=== PATIENT | female | born 1965 | race Caucasian/White ===

== ENCOUNTER 2018-08-15 06:35 | Emergency (ER) | payer MEDICAID ==
[2018-08-15 07:16] LABS: BASOPHILS # (AUTO) 0.1 10^3/uL (0.0-0.1); BASOPHILS % (AUTO) 0.5 %; HGB - HEMOGLOBIN 16.3 g/dL (12.0-16.0); LYMPHOCYTES # (AUTO) 2.2 10^3/uL (1.5-3.5); LYMPHOCYTES % (AUTO) 15.6 %; MEAN CORPUSCULAR HEMOGLOBIN 31.6 pg (27.0-31.0); MEAN CORPUSCULAR HGB CONC 32.3 g/dL (32.0-36.0); MEAN CORPUSCULAR VOLUME 97.8 fL (81.0-99.0); MEAN PLATELET VOLUME 10.9 fL (7.9-10.8); MONOCYTES # (AUTO) 1.4 10^3/uL (0.0-1.0); MONOCYTES % (AUTO) 10.2 %; NEUTROPHILS # (AUTO) 10.3 10^3/uL (1.5-6.6); NEUTROPHILS % (AUTO) 73.7 %; PLT - PLATELET COUNT 297 10^3/uL (130-450); RED BLOOD COUNT 5.15 10^6/uL (4.20-5.40); RED CELL DISTRIBUTION WIDTH 13.9 % (12.0-15.0)
--- NOTE | 2018-08-15 07:19 | ED Physician Documentation ---
PD HPI NVD - Stated complaint Stated Complaint: VOMITING - Chief complaint Chief Complaint: Abd Pain - History obtained from History obtained from: Patient - History of Present Illness Timing - onset: How many days ago (4) Timing - duration: Days (4) Timing - details: Gradual onset, Still present Associated symptoms: Abdominal pain, Near syncope / syncope, Loss of appetite Improved by: Vomiting Worsened by: Eating Similar symptoms before: Diagnosis (pancreatitis and UTI requiring hospitalization) Recently seen: Not recently seen - Additonal information Additional information: Previously well 53-year-old female with a history of pancreatitis is developed acute nausea vomiting and abdominal pain about 4 days ago. She is not been able to hold down much in the way of fluids and she is here now for evaluation. She reports that the past 2 years in a row she has been hospitalized at [facility] for up to 2 weeks 2 years ago for pancreatitis and last year for urinary tract infection. Review of Systems Constitutional: reports: Chills, Myalgias, Fatigue, Sweats Eyes: denies: Decreased vision Ears: denies: Ear pain Nose: denies: Rhinorrhea / runny nose, Congestion Throat: denies: Sore throat Cardiac: denies: Chest pain / pressure, Palpitations, Pedal edema, Calf pain Respiratory: reports: Cough. denies: Dyspnea GI: reports: Abdominal Pain, Nausea, Vomiting. denies: Constipation, Diarrhea : denies: Dysuria, Frequency Skin: denies: Rash Musculoskeletal: denies: Neck pain, Back pain, Extremity pain Neurologic: reports: Generalized weakness. denies: Focal weakness, Numbness PD PAST MEDICAL HISTORY - Past Medical History Past Medical History: Yes GI: Pancreatitis Psych: Schizophrenia, Panic attacks - Past Surgical History Past Surgical History: Yes General: Cholecystectomy - Present Medications Home Medications: Ambulatory Orders Medication Instructions Recorded Confirmed Promethazine [Phenergan] 25 mg PO Q6H PRN #10 tab 08/15/18 risperiDONE [Risperidone] 10 mg PO DAILY 08/15/18 08/15/18 - Allergies Allergies/Adverse Reactions: Allergies Allergy/AdvReac Type Severity Reaction Status Date / Time cephalexin Allergy Hallucinati Verified 08/15/18 06:50 ons - Social History Does the pt smoke?: Yes Smoking Status: Current every day smoker Does the pt drink ETOH?: No Does the pt have substance abuse?: Yes Substance Use and Type: Marijuana - Immunizations Immunizations are current?: Yes - POLST Patient has POLST: No PD ED PE NORMAL - Vitals Vital signs reviewed: Yes (hypertensive ) - General General: Alert and oriented X 3, Well developed/nourished, Other (carrier associate tone and flat affect belie the appearance of pain ) - HEENT HEENT: Atraumatic, PERRL, EOMI, Other (dry mucous membranes ) - Neck Neck: Supple, no meningeal sign - Cardiac Cardiac: RRR, No murmur - Respiratory Respiratory: No respiratory distress, Clear bilaterally - Abdomen Abdomen: Soft, Other (general tenderness without garding or rebound. 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, No motor deficit, No sensory deficit, Normal speech Eye Opening: Spontaneous Motor: Obeys Commands Verbal: Oriented GCS Score: 15 - Psych Psych: Normal mood Results - Vitals Vitals: Vital Signs - 24 hr 08/15/18 08/15/18 06:35 09:04 Temperature 36.5 C Heart Rate 53 L 65 Respiratory 18 15 Rate Blood Pressure 164/100 H 164/85 H O2 Saturation 97 97 Oxygen O2 Source Room air - Labs Labs: Laboratory Tests 08/15/18 08/15/18 08/15/18 06:55 06:55 07:15 WBC 14.0 H RBC 5.15 Hgb 16.3 H Hct 50.4 H MCV 97.8 MCH 31.6 H MCHC 32.3 RDW 13.9 Plt Count 297 MPV 10.9 H Neut # (Auto) 10.3 H Lymph # (Auto) 2.2 [place] # (Auto) 1.4 H Eos # (Auto) 0.0 Baso # (Auto) 0.1 Absolute Nucleated RBC 0.00 Nucleated RBC % 0.0 Sodium 142 Potassium 3.0 L Chloride 99 L Carbon Dioxide 28 Anion Gap 15.0 H BUN 21 H Creatinine 1.1 H Estimated GFR (MDRD) 52 L Glucose 173 H Calcium 9.9 Total Bilirubin 0.9 AST 26 ALT 20 Alkaline Phosphatase 96 Total Protein 9.0 H Albumin 5.2 Globulin 3.8 Albumin/Globulin Ratio 1.4 Amylase 176 H Lipase 88 H Urine Color DARK YELLOW Urine Clarity CLEAR Urine pH 6.0 Ur Specific [place] >=1.030 H Urine Protein 100 H Urine Glucose (UA) NEGATIVE Urine Ketones 40 H Urine Occult Blood MODERATE H Urine Nitrite NEGATIVE Urine Bilirubin NEGATIVE Urine Urobilinogen 0.2 (NORMAL) Ur Leukocyte Esterase NEGATIVE Urine RBC 6-10 H Urine WBC 0-3 Ur Squamous Epith Cells MOD Squamous H Urine Bacteria Few Ur Microscopic Review INDICATED Urine Culture Comments NOT INDICATED Procedures - IVC sono (time) 0730 Bedside IVC sono: IVC measures (cm) (1.22), IVC collapsed c insp (cm) (complete), Dehydration (est 1 liter deficit) PD MEDICAL DECISION MAKING - ED course Complexity details: reviewed old records, reviewed results, re-evaluated patient, considered differential, d/w patient, d/w family ED course: 53 y/o female with acute vomiting and abdominal pain has mild elevation in the amylase and lipase consistent with a mild pancreatitis. She responds to treatment here with saline, phenergan and potassium. Departure - Departure Disposition: 01 Home, Self Care Clinical Impression: Dehydration Pancreatitis Qualifiers: Chronicity: acute Pancreatitis type: unspecified pancreatitis type Acute pancreatitis complication: unspecified Qualified Code(s): K85.90 - Acute pancreatitis without necrosis or infection, unspecified Condition: Stable Instructions: ED Dehydration, ED Pancreatitis Follow-Up: Lay Westfall DNP [Primary Care Provider] - Prescriptions: Promethazine [Phenergan] 25 mg PO Q6H PRN #10 tab PRN Reason: Nausea / Vomiting
[2018-08-15 07:22] LABS: GLUCOSE, URINE (UA) NEGATIVE (NEGATIVE); KETONES,URINE (UA) 40 mg/dL (NEGATIVE); LEUKOCYTE ESTERASE, URINE NEGATIVE (NEGATIVE); NITRITE,URINE NEGATIVE (NEGATIVE); OCCULT BLOOD,URINE MODERATE (NEGATIVE); PROTEIN,URINE 100 mg/dL (NEGATIVE); UROBILINOGEN,URINE 0.2 (NORMAL) E.U./dL (NORMAL)
[2018-08-15 07:23] LABS: ALBUMIN 5.2 g/dL (3.2-5.5); ALBUMIN/GLOBULIN RATIO 1.4 (1.0-2.2); BILIRUBIN,TOTAL 0.9 mg/dL (0.2-1.0); CALCIUM 9.9 mg/dL (8.5-10.3); CREATININE 1.1 mg/dL (0.4-1.0)
[2018-08-15 07:26] LABS: BILIRUBIN,URINE NEGATIVE (NEGATIVE); CLARITY,URINE CLEAR (CLEAR); ICTOTEST,URINE NEGATIVE
[2018-08-15 07:39] LABS: BACTERIA,URINE Few /HPF (None Seen); SQUAMOUS EPITHELIAL CELL,UR MOD Squamous (<= Few)
[2018-08-15] MEDS: SODIUM CHLORIDE 0.9% 1,000 ML IV ONE (07:48)
[2018-08-15] MEDS: PROMETHAZINE INJ 25 MG in SODIUM CHLORIDE 0.9% 50 ML IV STA (07:48)
[2018-08-15] MEDS: POTASSIUM CHLOR 10 MEQ/100 ML 10 MEQ/100 ML BAG IV ONE (08:24)
[2018-08-15] MEDS: POTASSIUM BICARB 25 MEQ TABLET PO STA (08:24)
[2018-08-15 09:04] VITALS: BP 164/85
== END 2018-08-15 10:13 | disposition home or self-care (01) ==
LOC: ED 06:35
DX: E86.0 Dehydration (principal); K85.90 Acute pancreatitis without necrosis or infection, unspecified; F17.200 Nicotine dependence, unspecified, uncomplicated
CPT/HCPCS: 36415; 80053; 81001; 81003; 82150; 83690; 85025; 87086; 96365; 96366; 96367; 99283; 99284

== ENCOUNTER 2018-08-18 23:25 | Inpatient (IN) | payer MEDICAID ==
[2018-08-18] MEDS ORDERED: SODIUM CHLORIDE 0.9% 1,000 ML IV STA (23:31)
[2018-08-18] MEDS ORDERED: HALOPERIDOL 5 MG/ML VIAL IVP STA (23:53)
--- NOTE | 2018-08-18 23:58 | ED Physician Documentation ---
History of Present Illness - Stated complaint Stated Complaint: VOMITING - Chief complaint Chief Complaint: Abd Pain - History obtained from History obtained from: Patient, Family - History of Present Illness Timing: How many days ago (5) Pain level max: 3 Pain level now: 3 Improved by: nothing Worsened by: eating - Additonal information Additional information: Patient is a 53-year-old female who uses marijuana 3-4 times daily, states she has been vomiting for the past 5 days. Seen here 3 days ago for same, given IV fluids and Phenergan. Decided to go home at that time but the vomiting has continued. No fevers. Mild abdominal cramping. This is happened several times in the past. Usually has to be hospitalized. Review of Systems Ten Systems: 10 systems reviewed and negative Constitutional: denies: Fever, Chills Nose: denies: Rhinorrhea / runny nose, Congestion Throat: denies: Sore throat Cardiac: denies: Chest pain / pressure Respiratory: denies: Cough GI: reports: Nausea, Vomiting. denies: Diarrhea Skin: denies: Rash Musculoskeletal: denies: Neck pain, Back pain Neurologic: denies: Focal weakness, Numbness, Headache PD PAST MEDICAL HISTORY - Past Medical History Past Medical History: Yes Cardiovascular: None Respiratory: None Neuro: None Endocrine/Autoimmune: None GI: Pancreatitis CARE ASSOCIATE: None : None HEENT: None Psych: Schizophrenia, Panic attacks Musculoskeletal: None Derm: None - Past Surgical History Past Surgical History: Yes General: Cholecystectomy - Present Medications Home Medications: Ambulatory Orders Medication Instructions Recorded Confirmed Promethazine [Phenergan] 25 mg PO Q6H PRN #10 tab 08/15/18 risperiDONE [Risperidone] 10 mg PO DAILY 08/15/18 08/15/18 - Allergies Allergies/Adverse Reactions: Allergies Allergy/AdvReac Type Severity Reaction Status Date / Time cephalexin Allergy Hallucinati Verified 08/18/18 23:34 ons - Social History Does the pt smoke?: Yes Smoking Status: Current every day smoker Does the pt drink ETOH?: No Does the pt have substance abuse?: Yes - Immunizations Immunizations are current?: Yes - POLST Patient has POLST: No PD ED PE NORMAL - Vitals Vital signs reviewed: Yes - General General: Alert and oriented X 3, No acute distress - HEENT HEENT: Moist mucous membranes - Neck Neck: Supple, no meningeal sign - Cardiac Cardiac: RRR - Respiratory Respiratory: No respiratory distress, Clear bilaterally - Abdomen Abdomen: Soft, Non tender, Non distended - Derm Derm: Warm and dry - Extremities Extremities: No edema - Neuro Neuro: Alert and oriented X 3 - Psych Psych: Normal mood, Normal affect Results - Vitals Vitals: Vital Signs - 24 hr 08/18/18 08/19/18 08/19/18 23:32 00:06 00:44 Temperature 37.3 C Heart Rate 98 70 82 Respiratory 16 16 16 Rate Blood Pressure 127/96 H 116/78 113/65 O2 Saturation 98 98 97 08/19/18 08/19/18 01:04 01:31 Temperature Heart Rate 76 79 Respiratory 16 16 Rate Blood Pressure 130/78 109/88 H O2 Saturation 96 94 Oxygen O2 Source Room air - Labs Labs: Laboratory Tests 08/18/18 08/18/18 23:40 23:40 WBC 11.4 H RBC 5.69 H Hgb 17.9 H Hct 54.4 H MCV 95.5 MCH 31.5 H MCHC 33.0 RDW 13.9 Plt Count 278 MPV 11.2 H Neut # (Auto) 8.5 H Lymph # (Auto) 1.7 [place] # (Auto) 1.2 H Eos # (Auto) 0.0 Baso # (Auto) 0.1 Absolute Nucleated RBC 0.00 Nucleated RBC % 0.0 Sodium 136 Potassium 2.5 L* Chloride 93 L Carbon Dioxide 31 Anion Gap 12.0 BUN 27 H Creatinine 1.0 Estimated GFR (MDRD) 58 L Glucose 129 H Calcium 8.5 Phosphorus 2.6 Magnesium 2.3 Total Bilirubin 2.1 H AST 107 H ALT 253 H Alkaline Phosphatase 123 H Total Protein 7.3 Albumin 4.0 Globulin 3.3 Albumin/Globulin Ratio 1.2 Lipase 44 - Rads (name of study) CT abd/pelvis Radiology: Prelim report reviewed, EMP read contemporaneously, See rad report (Abnormal wall thickening of the distal and terminal ileum, suggestive of inflammatory bowel disease. No evidence of bowel obstruction or perforation. Normal appendix. ) PD MEDICAL DECISION MAKING - ED course Complexity details: reviewed results, re-evaluated patient, considered differential, d/w patient, d/w family, d/w [facility] consultant ED course: Patient is a 53-year-old female who presents to the emergency department with continued vomiting today. Possible cannabinoid-induced hyperemesis? Given Haldol and does feel better but did have continued vomiting. Then given Phenergan and Zofran and vomited as well. Given IV fluids. Found to be significantly hypokalemic. As she is not tolerating p.o., was given as K riders. CT scan does show small bowel wall thickening, possible inflammatory bowel disease? Patient states she does not have a history of this. Will place in observation for continued vomiting and hypokalemia. Discussed the case with Dr. Reyna, hospitalist who accepts This document was made in part using voice recognition software. While efforts are made to proofread this document, sound alike and grammatical errors may occur. Patient has never had a colonoscopy or seen GI. Departure - Departure Disposition: ED Place in Observation Clinical Impression: Dehydration, Hypokalemia, Cannabinoid hyperemesis syndrome Vomiting Qualifiers: Vomiting type: unspecified Vomiting Intractability: intractable Nausea presence: with nausea Qualified Code(s): R11.2 - Nausea with vomiting, unspecified Condition: Stable
[2018-08-19 00:17] LABS: BASOPHILS # (AUTO) 0.1 10^3/uL (0.0-0.1); BASOPHILS % (AUTO) 0.6 %; EOSINOPHILS % (AUTO) 0.3 %; HGB - HEMOGLOBIN 17.9 g/dL (12.0-16.0); LYMPHOCYTES # (AUTO) 1.7 10^3/uL (1.5-3.5); LYMPHOCYTES % (AUTO) 14.8 %; MEAN CORPUSCULAR HEMOGLOBIN 31.5 pg (27.0-31.0); MEAN CORPUSCULAR VOLUME 95.5 fL (81.0-99.0); MEAN PLATELET VOLUME 11.2 fL (7.9-10.8); MONOCYTES # (AUTO) 1.2 10^3/uL (0.0-1.0); MONOCYTES % (AUTO) 10.2 %; NEUTROPHILS # (AUTO) 8.5 10^3/uL (1.5-6.6); NEUTROPHILS % (AUTO) 74.1 %; PLT - PLATELET COUNT 278 10^3/uL (130-450); RED BLOOD COUNT 5.69 10^6/uL (4.20-5.40); RED CELL DISTRIBUTION WIDTH 13.9 % (12.0-15.0); WHITE BLOOD COUNT 11.4 x10^3/uL (4.8-10.8)
[2018-08-19 00:40] LABS: ALBUMIN/GLOBULIN RATIO 1.2 (1.0-2.2); BILIRUBIN,TOTAL 2.1 mg/dL (0.2-1.0); CALCIUM 8.5 mg/dL (8.5-10.3); MAGNESIUM 2.3 mg/dL (1.7-2.8); PHOSPHORUS 2.6 mg/dL (2.5-4.6); TOTAL PROTEIN 7.3 g/dL (6.7-8.2)
[2018-08-19] MEDS ORDERED: SODIUM CHLORIDE 0.9% 1,000 ML IV ONE (00:48)
[2018-08-19] MEDS ORDERED: ONDANSETRON 4 MG/2 ML VIAL IVP STA (00:49)
[2018-08-19] MEDS ORDERED: PROMETHAZINE INJ 25 MG in SODIUM CHLORIDE 0.9% 50 ML IV STA (00:49)
[2018-08-19] MEDS ORDERED: POTASSIUM CHLOR 10 MEQ/100 ML 10 MEQ/100 ML BAG IV ONE ×2 (00:49)
[2018-08-19] MEDS ORDERED: IOPAMIDOL-300 100 ML VIAL ONE (00:58)
[2018-08-19] MEDS ORDERED: IOPAMIDOL-300 100 ML VIAL IVP ONE (01:17)
[2018-08-19] MEDS ORDERED: ONDANSETRON ODT 4 MG TABLET TL PRN (01:39)
[2018-08-19] MEDS ORDERED: PROCHLORPERAZINE 10 MG/2 ML VIAL IVP PRN (01:39)
[2018-08-19] MEDS ORDERED: ONDANSETRON 4 MG/2 ML VIAL IVP PRN (01:39)
--- NOTE | 2018-08-19 01:43 | CT Report ---
Reason: vomiting, abd pain Procedure Date: 08/19/2018 Accession Number: [id number] / [id number] Procedure: CT - Abdomen/Pelvis W/ CPT Code: FULL RESULT: EXAM: CT ABDOMEN AND PELVIS EXAM DATE: 08/19/2018 01:27 AM. CLINICAL HISTORY: Vomiting, abd pain. COMPARISONS: None. TECHNIQUE: Routine helical CT imaging was performed through the abdomen and pelvis. IV contrast: ISOVUE 300 100mL. Enteric contrast: No. Reconstructions: Coronal and sagittal. In accordance with CT protocol optimization, one or more of the following dose reduction techniques were utilized for this exam: automated exposure control, adjustment of mA and/or KV based on patient size, or use of iterative reconstructive technique. FINDINGS: Lung Bases: Unremarkable. Liver: Normal. No masses. Gallbladder/Bile Ducts: Postoperative changes of cholecystectomy. No biliary dilatation. Spleen: Normal. Pancreas: Normal. Adrenal Glands: Normal. Kidneys: Normal. No masses or hydronephrosis. Peritoneal Cavity/Bowel: There is abnormal wall thickening of the distal and terminal ileum, suggestive of inflammatory bowel disease. No proximal small bowel dilatation is seen. Colonic diverticulosis is present, without CT evidence of diverticulitis. No free gas, free fluid, or abdominal adenopathy is appreciated. The appendix is well visualized and normal. Pelvic Organs: An IUD is noted in the uterus. No pelvic adenopathy or free fluid. Vasculature: No aneurysms or other significant abnormality. Bones: No significant abnormality. Other: None. IMPRESSION: Abnormal wall thickening of the distal and terminal ileum, suggestive of inflammatory bowel disease. No evidence of bowel obstruction or perforation. Normal appendix. RADIA
--- NOTE | 2018-08-19 01:49 | HISTORY & PHYSICAL EXAMINATION ---
Chief Complaint - Chief Complaint Chief Complaint: intractable nausea and vomitting History of Present Illness - Admitted From Admitted From:: ER/Home - History Obtained From Records Reviewed: [facility] History obtained from: patient and Dr. Baxter Exam Limitations: none - History of Present Illness HPI Comment/Other: she states she has had multiple encounters for N/V [facility] and ourselves with an admission for pancreatitis a few years ago. She has also had her gallbladder removed. Her states she had her last admission about 2 years ago and she was there close to 2 weeks as they worked her up. This time it's been with abd cramping, but no diarrhea, no fever, no chills. Emesis is without blood. She is not abusing alcohol. She does use cannibus 3-4 times a day to control her shoulder pain. . She was seen in the ER and felt better so went home after treatment. But N/V returned and this time not responding to IVF, phenergan, zofran, haldol in the ER, Labs show new hypokalemia and new hepatit is. In between episodes of the nausea and vomitting she is with normal appetite and no diarrhea, no pain. 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 ) Derm: reports: None MRSA Hx?: No - Past Surgical History General: reports: Cholecystectomy - Family & Social History Family History Comment/Other: Mom is alive at 72 and has survived breast cancer and "is stupid" according to the patient. Dad at 49 bc of. 1 sibling after being hit by a car, other siblings are healthy Living arrangement: At home Living Situation: With spouse/s.o. Social History Notes: She is from the [place]. to her second . They live in their own home and she works with him sometimes. He is a aldana. She occasionally drinks alcohol but no hx of abuse. Denies tobacco use. Uses cannibus 3-4 times a day. No hx of cocaine, heroin, metamphetamines. - Substance History Use: Uses substance without health or social issues: Alcohol Abuse: Recurrent use of substance despite neg consequences: NONE Dependence: Experiences withdrawal or developed tolerances: NONE - POLST Patient has POLST: No POLST Status: Full Code Meds/Allgy - Home Medications Home Medications: Ambulatory Orders Medication Instructions Recorded Confirmed Promethazine [Phenergan] 25 mg PO Q6H PRN #10 tab 08/15/18 risperiDONE [Risperidone] 10 mg PO DAILY 08/15/18 08/15/18 - Allergies Allergies/Adverse Reactions: Allergies Allergy/AdvReac Type Severity Reaction Status Date / Time cephalexin Allergy Hallucinati Verified 08/18/18 23:34 ons Review of Systems - Constitutional Constitutional: reports: Poor appetite (for the last week.). denies: Fatigue, Fever, Chills, Malaise, Weight gain, Weight loss - Eyes Eyes: denies: Irritation, Amaurosis, Field loss, Vision loss - Ears, Nose & Throat Ears, Nose & Throat: reports: Vertigo (when she drinks. Last time was 04/04 and she almost fell on the ground after 2 drinks.). denies: Hearing loss, Nasal congestion, Postnasal drainage, Dentures, Sore throat, Hoarseness - Cardiovascular Cariovascular: denies: Irregular heart rate, Palpitations, Chest pain, Edema, Syncope, Exertional dyspnea, Decr. exercise tolerance - Respiratory Respiratory: denies: Cough, Sputum production, Wheezing, Snoring - Gastrointestinal Gastrointestinal: reports: Abdominal distention, Other (rectal pain from a ?fissure but she doesn't want to talk about it). denies: Abdominal pain, Constipation, Diarrhea, Change in bowel habits - Genitourinary Genitourinary: denies: Dysuria, Frequency, Urgency, Incontinence, Flank pain, Nocturia - Musculoskeletal Musculoskeletal: reports: Joint pain (in shoulder. knees and hips are ok). denies: Muscle pain, Back pain, Muscle aches, Stiffness - Integumentary Integumentary: denies: Lesions, Dryness, Pigment changes - Neurological Neurological: denies: General weakness, Focal weakness, Headache, Dizziness, Memory problems, Pre-existing deficit - Psychiatric Psychiatric: reports: Anxiety, Hallucinations - Endocrine Endocrine: denies: Polyuria, Polydypsia, Polyphagia - Hematologic/Lymphatic Hematologic/Lymphatic: denies: Anemia, Bruising, Petechiae, Blood clots Prior Level of Functionality: Independent with ADL's. Drives. 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 Exam - Vital Signs Reviewed Vital Signs: Yes Vital Signs: Vital Signs x48h Temp Pulse Resp BP Pulse Ox 08/19/18 01:31 79 16 109/88 H 94 08/19/18 01:04 76 16 130/78 96 08/19/18 00:44 82 16 113/65 97 08/19/18 00:06 70 16 116/78 98 08/18/18 23:32 37.3 C 98 16 127/96 H 98 - Physical Exam General Appearance: positive: No acute distress, Alert, Other (short statured slender white female quietly laying in bed. Has had several episodes of wretching and dry heaves while in the ER.) Eyes Bilateral: positive: PERRL, EOMI ENT: positive: Pharynx nml Neck: positive: No JVD. negative: Stiff neck, Carotid bruit Respiratory: positive: Chest non-tender. negative: Wheezes, Rales, Rhonchi Cardiovascular: positive: Regular rate & rhythm. negative: Systolic murmur, Gallop/S4, Friction rub Peripheral Pulses: positive: 1+ Abdomen: positive: No organomegaly, Nml bowel sounds, No distention, Tenderness (mild and diffuse). negative: Guarding, Rebound Skin: positive: Warm, Dry Extremities: positive: Full ROM, No pedal edema Neurologic/Psychiatric: positive: Oriented x3, CN's nml (2-12), Motor nml. negative: Mood/affect nml (she seems angry. Not happy shared her symptoms of fissure, not happy at mom when she called her stupid.) Conclusion/Plan - Problem List (1) Intractable vomiting with nausea Conclusion/Plan: She has had several episodes in the past and carries the diagnosis of pancreatitis (w subsequent lap lauren), canabinoid hyperemesis syndrome, and now she has an abnormal CT. She has never had a colonoscopy. The CT shows inflamed small bowel and combine that w rectal "fissure" she may have inflammatory bowel disease. But she denies bloody diarrhea, blood in stool, abd pain, weight changes. No fever or sweats. Plan: admit OBV for control of symptoms continue IVF continue phenergan, compazine and zofran prn Protonix IV bid If she responds and can leave tomorrow , plan on keeping her appointment w Chris Rowell, her PA. She will need a referral to GI for colonoscopy and biopsy to eval for IBD. (2) Dehydration Conclusion/Plan: as seen with dry mucous membranes and elevated Hgb and Hct. Plan: IVF (3) Hypokalemia Conclusion/Plan: K riders recheck BMP in am. (4) Elevated LFTs Conclusion/Plan: not present with visit a few days ago. CT of abd with unremarkable liver, ducts. Hepatitis vs. CBD stone Check hepatitis panel If continues to have elevated alk vickie or bili, may need outpt MRCP. They are not availab le on the weekends. - Lab Results Fish Bones: 08/18/18 23:40 08/18/18 23:40 - Diagnostic Imaging Results Diagnostic Imaging Results: positive: Final report reviewed Diagnostic Imaging Results Comments: CT ABDOMEN AND PELVIS EXAM DATE: 08/19/2018 01:27 AM. CLINICAL HISTORY: Vomiting, abd pain. COMPARISONS: None. TECHNIQUE: Routine helical CT imaging was performed through the abdomen and pelvis. IV contrast: ISOVUE 300 100mL. Enteric contrast: No. Reconstructions: Coronal and sagittal. In accordance with CT protocol optimization, one or more of the following dose reduction techniques were utilized for this exam: automated exposure control, adjustment of mA and/or KV based on patient size, or use of iterative reconstructive technique. FINDINGS: Lung Bases: Unremarkable. Liver: Normal. No masses. Gallbladder/Bile Ducts: Postoperative changes of cholecystectomy. No biliary dilatation. Spleen: Normal. Pancreas: Normal. Adrenal Glands: Normal. Kidneys: Normal. No masses or hydronephrosis. Peritoneal Cavity/Bowel: There is abnormal wall thickening of the distal and terminal ileum, suggestive of inflammatory bowel disease. No proximal small bowel dilatation is seen. Colonic diverticulosis is present, without CT evidence of diverticulitis. No free gas, free fluid, or abdominal adenopathy is appreciated. The appendix is well visualized and normal. Pelvic Organs: An IUD is noted in the uterus. No pelvic adenopathy or free fluid. Vasculature: No aneurysms or other significant abnormality. Bones: No significant abnormality. Other: None. IMPRESSION: Abnormal wall thickening of the distal and terminal ileum, suggestive of inflammatory bowel disease. No evidence of bowel obstruction or perforation. Normal appendix. Core Measures - Anticipated LOS I expect patient to be DC'd or transferred within 96 hours.: Yes - DVT/VTE - Prophylaxis VTE/DVT Device ordered at admit?: Yes
[2018-08-19] MEDS: SODIUM CHLORIDE 0.9% 1,000 ML IV SCH ×4 (02:42→21:46)
[2018-08-19 02:47] LABS: GLUCOSE, URINE (UA) NEGATIVE (NEGATIVE); KETONES,URINE (UA) 15 mg/dL (NEGATIVE); LEUKOCYTE ESTERASE, URINE NEGATIVE (NEGATIVE); NITRITE,URINE NEGATIVE (NEGATIVE); OCCULT BLOOD,URINE TRACE-LYSE (NEGATIVE); PROTEIN,URINE NEGATIVE (NEGATIVE); UROBILINOGEN,URINE 0.2 (NORMAL) E.U./dL (NORMAL)
[2018-08-19 02:55] LABS: BILIRUBIN,URINE NEGATIVE (NEGATIVE); CLARITY,URINE CLEAR (CLEAR); ICTOTEST,URINE NEGATIVE
[2018-08-19] MEDS ORDERED: HALOPERIDOL 5 MG/ML VIAL IVP SCH (04:00)
[2018-08-19] MEDS: SODIUM CHLORIDE FLUSH 0.9% 10 ML SYRINGE IVP PRN ×3 (04:09→07:21)
[2018-08-19] MEDS: PANTOPRAZOLE 40 MG VIAL IVP SCH ×2 (07:20→16:25)
[2018-08-19 07:29] LABS: BASOPHILS % (AUTO) 0.3 %; EOSINOPHILS # (AUTO) 0.1 10^3/uL (0.0-0.7); EOSINOPHILS % (AUTO) 1.1 %; HGB - HEMOGLOBIN 14.7 g/dL (12.0-16.0); LYMPHOCYTES # (AUTO) 2.6 10^3/uL (1.5-3.5); LYMPHOCYTES % (AUTO) 27.7 %; MEAN CORPUSCULAR HEMOGLOBIN 32.4 pg (27.0-31.0); MEAN CORPUSCULAR HGB CONC 33.9 g/dL (32.0-36.0); MEAN CORPUSCULAR VOLUME 95.6 fL (81.0-99.0); MEAN PLATELET VOLUME 11.6 fL (7.9-10.8); MONOCYTES # (AUTO) 0.9 10^3/uL (0.0-1.0); NEUTROPHILS # (AUTO) 5.7 10^3/uL (1.5-6.6); NEUTROPHILS % (AUTO) 60.9 %; PLT - PLATELET COUNT 189 10^3/uL (130-450); RED BLOOD COUNT 4.52 10^6/uL (4.20-5.40); RED CELL DISTRIBUTION WIDTH 13.3 % (12.0-15.0); WHITE BLOOD COUNT 9.3 x10^3/uL (4.8-10.8)
[2018-08-19 07:59] LABS: ALBUMIN 3.4 g/dL (3.2-5.5); ALBUMIN/GLOBULIN RATIO 1.4 (1.0-2.2); BILIRUBIN,TOTAL 1.5 mg/dL (0.2-1.0); CALCIUM 7.9 mg/dL (8.5-10.3); CREATININE 0.8 mg/dL (0.4-1.0); TOTAL PROTEIN 5.8 g/dL (6.7-8.2)
[2018-08-19] MEDS ORDERED: POTASSIUM CHLORIDE INJ 40 MEQ in SODIUM CHLORIDE 0.9% 480 ML IV ONE (08:34)
[2018-08-19] MEDS ORDERED: POTASSIUM CHLORIDE 20 MEQ TABLET PO ONE (08:35)
[2018-08-19] MEDS: POLYETHYLENE GLYCOL 3350 17 GM PACKET PO SCH (09:41)
[2018-08-19] MEDS: SODIUM CHLORIDE FLUSH 0.9% 10 ML SYRINGE IVP SCH ×2 (09:42→16:26)
[2018-08-19] MEDS: VANCOMYCIN 125 MG CAPSULE PO SCH ×2 (16:26→21:46)
--- NOTE | 2018-08-19 18:15 | PROVIDER PROGRESS NOTE ---
Subjective - Prog Note Date Prog Note Date: 08/19/18 - Subjective Pt reports feeling: Improved Subjective: pt report her N/V and abdominal cramping is better controlled. Pt report diarrhea. C.Diff test is positive for C.diff. Current Medications - Current Medications Current Medications: Active Medications Sodium Chloride (Normal Saline 0.9%) 1,000 mls @ 125 mls/hr IV .Q8H [facility] Last Admin: 08/19/18 16:26 Dose: 125 mls/hr Ondansetron HCl (Zofran Inj) 4 mg IVP Q6HR PRN PRN Reason: Nausea / Vomiting Ondansetron HCl (Zofran Odt) 4 mg TL Q6HR PRN PRN Reason: Nausea / Vomiting Pantoprazole Sodium (Protonix) 40 mg IVP BIDAC [facility] Last Admin: 08/19/18 16:25 Dose: 40 mg Polyethylene Glycol (Miralax) 17 gm PO DAILY [facility] Last Admin: 08/19/18 09:41 Dose: Not Given Prochlorperazine Edisylate (Compazine Inj) 10 mg IVP Q6HR PRN PRN Reason: Nausea / Vomiting Sodium Chloride (Normal Saline Flush 0.9%) 10 ml IVP PRN PRN PRN Reason: NEEDED PER PROVIDER ORDERS Last Admin: 08/19/18 07:21 Dose: 10 ml Sodium Chloride (Normal Saline Flush 0.9%) 10 ml IVP 0100,0900,1700 [facility] Last Admin: 08/19/18 16:26 Dose: 10 ml Vancomycin HCl (Vancocin) 125 mg PO QID [facility] Last Admin: 08/19/18 16:26 Dose: 125 mg risperiDONE [Risperdal] 1 mg PO DAILY 08/19/18 Objective - Vital Signs/Intake & Output Reviewed Vital Signs: Yes Vital Signs: Vital Signs x48h Temp Pulse Pulse Resp BP Pulse Ox 08/19/18 16:27 37.0 C 73 18 116/66 99 08/19/18 12:01 37.1 C 66 18 114/79 97 08/19/18 10:27 37.2 C 68 18 95 Intake & Output: Intake & Output 08/16/18 08/17/18 08/18/18 08/19/18 23:59 23:59 23:59 23:59 Intake Total 6441 Balance 6441 - Objective General Appearance: positive: No acute distress, Alert. negative: Lethargic Eyes Bilateral: positive: Normal inspection, PERRL, No lid inflammation, Conjunctivae nml ENT: positive: ENT inspection nml, Pharynx nml, No signs of dehydration. negative: Purulent nasal drainage, Pharyngeal erythema, Oral lesions Neck: positive: Nml inspection, Thyroid nml, No JVD, Trachea midline. negative: Thyromegaly, Lymphadenopathy (R), Lymphadenopathy (L), Stiff neck, Swelling/bruising, Tracheal deviation Respiratory: positive: Chest non-tender, No respiratory distress, Breath sounds nml. negative: Wheezes, Rales, Rhonchi Cardiovascular: positive: Regular rate & rhythm, No murmur, No gallop. negative: Irregularly irregular, Extrasystoles, Tachycardia, Bradycardia, JVD present, Systolic murmur, Diastolic murmur Peripheral Pulses: 2+ Radial (R), 2+ Radial (L), 2+ Dorsalis pedis (R), 2+ Dorsalis pedis (L) Abdomen: positive: Non-tender, No organomegaly, Nml bowel sounds, No distention. negative: Tenderness, Guarding, Rebound Back: positive: Nml inspection. negative: CVA tenderness (R), CVA tenderness (L) Skin: positive: Color nml, No rash, Warm, Dry. negative: Cyanosis, Diaphoresis, Pallor Extremities: positive: Non-tender, Full ROM, Nml appearance. negative: Calf tenderness, Joint swelling, Guillermina's sign/cords Neurologic/Psychiatric: positive: Oriented x3, Motor nml, Sensation nml, Mood/affect nml. negative: Weakness, Sensory loss, Facial droop, Slurred/abnml speech, Depressed mood/affect - Lab Results Fish Bones: 08/19/18 06:25 08/19/18 13:54 Other Labs: Lab Results x24hrs 08/19/18 08/19/18 08/19/18 Range/Units 13:54 06:25 06:25 WBC 9.3 (4.8-10.8) x10^3/uL RBC 4.52 (4.20-5.40) 10^6/uL Hgb 14.7 (12.0-16.0) g/dL Hct 43.2 (37.0-47.0) % MCV 95.6 (81.0-99.0) fL MCH 32.4 H (27.0-31.0) pg MCHC 33.9 (32.0-36.0) g/dL RDW 13.3 (12.0-15.0) % Plt Count 189 (130-450) 10^3/uL MPV 11.6 H (7.9-10.8) fL Neut # (Auto) 5.7 (1.5-6.6) 10^3/uL Lymph # (Auto) 2.6 (1.5-3.5) 10^3/uL [place] # (Auto) 0.9 (0.0-1.0) 10^3/uL Eos # (Auto) 0.1 (0.0-0.7) 10^3/uL Baso # (Auto) 0.0 (0.0-0.1) 10^3/uL Absolute Nucleated RBC 0.01 x10^3/uL Nucleated RBC % 0.1 /100WBC Sodium 138 (135-145) mmol/L Potassium 4.1 2.5 L* (3.5-5.0) mmol/L Chloride 103 (101-111) mmol/L Carbon Dioxide 29 (21-32) mmol/L Anion Gap 6.0 (6-13) BUN 19 (6-20) mg/dL Creatinine 0.8 (0.4-1.0) mg/dL Estimated GFR (MDRD) 75 L (>89) Glucose 84 (70-100) mg/dL Calcium 7.9 L (8.5-10.3) mg/dL Phosphorus (2.5-4.6) mg/dL Magnesium (1.7-2.8) mg/dL Total Bilirubin 1.5 H (0.2-1.0) mg/dL AST 81 H (10-42) IU/L ALT 198 H (10-60) IU/L Alkaline Phosphatase 95 (42-121) IU/L Total Protein 5.8 L (6.7-8.2) g/dL Albumin 3.4 (3.2-5.5) g/dL Globulin 2.4 (2.1-4.2) g/dL Albumin/Globulin Ratio 1.4 (1.0-2.2) Lipase (22-51) U/L Urine Color Urine Clarity (CLEAR) Urine pH (5.0-7.5) PH Ur Specific [place] (1.002-1.030) Urine Protein (NEGATIVE) mg/dL Urine Glucose (UA) (NEGATIVE) mg/dL Urine Ketones (NEGATIVE) mg/dL Urine Occult Blood (NEGATIVE) Urine Nitrite (NEGATIVE) Urine Bilirubin (NEGATIVE) Urine Urobilinogen (NORMAL) E.U./dL Ur Leukocyte Esterase (NEGATIVE) Ur Microscopic Review Urine Culture Comments 08/19/18 08/18/18 08/18/18 Range/Units 02:40 23:40 23:40 WBC 11.4 H (4.8-10.8) x10^3/uL RBC 5.69 H (4.20-5.40) 10^6/uL Hgb 17.9 H (12.0-16.0) g/dL Hct 54.4 H (37.0-47.0) % MCV 95.5 (81.0-99.0) fL MCH 31.5 H (27.0-31.0) pg MCHC 33.0 (32.0-36.0) g/dL RDW 13.9 (12.0-15.0) % Plt Count 278 (130-450) 10^3/uL MPV 11.2 H (7.9-10.8) fL Neut # (Auto) 8.5 H (1.5-6.6) 10^3/uL Lymph # (Auto) 1.7 (1.5-3.5) 10^3/uL [place] # (Auto) 1.2 H (0.0-1.0) 10^3/uL Eos # (Auto) 0.0 (0.0-0.7) 10^3/uL Baso # (Auto) 0.1 (0.0-0.1) 10^3/uL Absolute Nucleated RBC 0.00 x10^3/uL Nucleated RBC % 0.0 /100WBC Sodium 136 (135-145) mmol/L Potassium 2.5 L* (3.5-5.0) mmol/L Chloride 93 L (101-111) mmol/L Carbon Dioxide 31 (21-32) mmol/L Anion Gap 12.0 (6-13) BUN 27 H (6-20) mg/dL Creatinine 1.0 (0.4-1.0) mg/dL Estimated GFR (MDRD) 58 L (>89) Glucose 129 H (70-100) mg/dL Calcium 8.5 (8.5-10.3) mg/dL Phosphorus 2.6 (2.5-4.6) mg/dL Magnesium 2.3 (1.7-2.8) mg/dL Total Bilirubin 2.1 H (0.2-1.0) mg/dL AST 107 H (10-42) IU/L ALT 253 H (10-60) IU/L Alkaline Phosphatase 123 H (42-121) IU/L Total Protein 7.3 (6.7-8.2) g/dL Albumin 4.0 (3.2-5.5) g/dL Globulin 3.3 (2.1-4.2) g/dL Albumin/Globulin Ratio 1.2 (1.0-2.2) Lipase 44 (22-51) U/L Urine Color YELLOW Urine Clarity CLEAR (CLEAR) Urine pH 7.0 (5.0-7.5) PH Ur Specific [place] <=1.005 (1.002-1.030) Urine Protein NEGATIVE (NEGATIVE) mg/dL Urine Glucose (UA) NEGATIVE (NEGATIVE) mg/dL Urine Ketones 15 H (NEGATIVE) mg/dL Urine Occult Blood TRACE-LYSE (NEGATIVE) Urine Nitrite NEGATIVE (NEGATIVE) Urine Bilirubin NEGATIVE (NEGATIVE) Urine Urobilinogen 0.2 (NORMAL) (NORMAL) E.U./dL Ur Leukocyte Esterase NEGATIVE (NEGATIVE) Ur Microscopic Review NOT INDICATED Urine Culture Comments NOT INDICATED ABX Reporting Has patient been on IV antibiotics over the past 48 hours?: Yes Sepsis Event Note (H) - Evaluation Current Stage of Sepsis: Ruled out Assessment/Plan - Problem List (1) Intractable vomiting with nausea Impression: pt report she has no N/V and abdominal pain is controlled continue IV of protonic (2) diarrhea pt report she had diarrhea. C.Diff test is positive isolation precaution PO of vancomycin IVF (3) Dehydration Conclusion/Plan: continueIVF lab monitor (4) Hypokalemia Conclusion/Plan: resolved (5) Elevated LFTs Conclusion/Plan: better, Liver enzyme and total Bilirubin decreased follow hepatitis panel continue lab monitor
[2018-08-20] MEDS: risperiDONE 1 MG TABLET PO SCH ×2 (00:43→08:56)
[2018-08-20] MEDS: SODIUM CHLORIDE FLUSH 0.9% 10 ML SYRINGE IVP SCH ×3 (00:45→16:00)
[2018-08-20] MEDS: SODIUM CHLORIDE 0.9% 1,000 ML IV SCH ×3 (05:56→20:31)
[2018-08-20] MEDS: PANTOPRAZOLE 40 MG VIAL IVP SCH ×2 (06:12→16:00)
[2018-08-20 06:28] LABS: BASOPHILS # (AUTO) 0.1 10^3/uL (0.0-0.1); BASOPHILS % (AUTO) 0.8 %; EOSINOPHILS # (AUTO) 0.2 10^3/uL (0.0-0.7); EOSINOPHILS % (AUTO) 2.4 %; HGB - HEMOGLOBIN 13.9 g/dL (12.0-16.0); LYMPHOCYTES # (AUTO) 2.1 10^3/uL (1.5-3.5); MEAN CORPUSCULAR HEMOGLOBIN 31.9 pg (27.0-31.0); MEAN CORPUSCULAR HGB CONC 32.4 g/dL (32.0-36.0); MEAN CORPUSCULAR VOLUME 98.6 fL (81.0-99.0); MEAN PLATELET VOLUME 11.3 fL (7.9-10.8); MONOCYTES # (AUTO) 0.6 10^3/uL (0.0-1.0); MONOCYTES % (AUTO) 8.4 %; NEUTROPHILS # (AUTO) 4.5 10^3/uL (1.5-6.6); NEUTROPHILS % (AUTO) 60.4 %; PLT - PLATELET COUNT 175 10^3/uL (130-450); RED BLOOD COUNT 4.36 10^6/uL (4.20-5.40); RED CELL DISTRIBUTION WIDTH 13.5 % (12.0-15.0); WHITE BLOOD COUNT 7.5 x10^3/uL (4.8-10.8)
[2018-08-20 06:41] LABS: ALBUMIN 3.5 g/dL (3.2-5.5); ALBUMIN/GLOBULIN RATIO 1.6 (1.0-2.2); BILIRUBIN,TOTAL 1.1 mg/dL (0.2-1.0); CALCIUM 8.1 mg/dL (8.5-10.3); CREATININE 0.8 mg/dL (0.4-1.0); TOTAL PROTEIN 5.7 g/dL (6.7-8.2)
[2018-08-20] MEDS ORDERED: POTASSIUM CHLORIDE INJ 40 MEQ in SODIUM CHLORIDE 0.9% 480 ML IV ONE (07:55)
[2018-08-20] MEDS ORDERED: POTASSIUM CHLORIDE 20 MEQ TABLET PO ONE (07:56)
[2018-08-20] MEDS: POLYETHYLENE GLYCOL 3350 17 GM PACKET PO SCH (08:56)
[2018-08-20] MEDS: VANCOMYCIN 125 MG CAPSULE PO SCH ×4 (08:56→20:32)
[2018-08-20] MEDS: SACCHAROMYCES BOULARDII 250 MG CAPSULE PO SCH ×2 (09:59→16:00)
--- NOTE | 2018-08-20 13:34 | PROVIDER PROGRESS NOTE ---
Subjective - Prog Note Date Prog Note Date: 08/20/18 - Subjective Pt reports feeling: Improved Subjective: pt report he N/V and abdominal pain is better control, but she still has some diarrhea. Pt request full liquid diet Current Medications - Current Medications Current Medications: Active Medications Sodium Chloride (Normal Saline 0.9%) 1,000 mls @ 125 mls/hr IV .Q8H [facility] Last Infusion: 08/20/18 11:06 Dose: 125 mls/hr Ondansetron HCl (Zofran Inj) 4 mg IVP Q6HR PRN PRN Reason: Nausea / Vomiting Ondansetron HCl (Zofran Odt) 4 mg TL Q6HR PRN PRN Reason: Nausea / Vomiting Pantoprazole Sodium (Protonix) 40 mg IVP BIDAC [facility] Last Admin: 08/20/18 06:12 Dose: 40 mg Polyethylene Glycol (Miralax) 17 gm PO DAILY [facility] Last Admin: 08/20/18 08:56 Dose: Not Given Prochlorperazine Edisylate (Compazine Inj) 10 mg IVP Q6HR PRN PRN Reason: Nausea / Vomiting Risperidone (Risperdal) 1 mg PO DAILY [facility] Last Admin: 08/20/18 08:56 Dose: 1 mg Saccharomyces Boulardii (Florastor) 500 mg PO BIDWM [facility] Last Admin: 08/20/18 09:59 Dose: 500 mg Sodium Chloride (Normal Saline Flush 0.9%) 10 ml IVP PRN PRN PRN Reason: NEEDED PER PROVIDER ORDERS Last Admin: 08/19/18 07:21 Dose: 10 ml Sodium Chloride (Normal Saline Flush 0.9%) 10 ml IVP 0100,0900,1700 [facility] Last Admin: 08/20/18 08:56 Dose: Not Given Vancomycin HCl (Vancocin) 125 mg PO QID [facility] Last Admin: 08/20/18 13:16 Dose: 125 mg risperiDONE [Risperdal] 1 mg PO DAILY 08/19/18 Objective - Vital Signs/Intake & Output Reviewed Vital Signs: Yes Vital Signs: Vital Signs x48h Temp Pulse Resp BP Pulse Ox 08/20/18 08:00 36.9 C 75 18 118/78 97 Intake & Output: Intake & Output 08/17/18 08/18/18 08/19/18 08/20/18 23:59 23:59 23:59 23:59 Intake Total 7935.583.7349.750 Balance 7744.380 8542.750 - Objective General Appearance: positive: No acute distress, Alert. negative: Lethargic Eyes Bilateral: positive: Normal inspection, PERRL, No lid inflammation, Conjunctivae nml ENT: positive: ENT inspection nml, Pharynx nml, No signs of dehydration. n egative: Purulent nasal drainage, Pharyngeal erythema, Oral lesions Neck: positive: Nml inspection, Thyroid nml, No JVD, Trachea midline. negative: Thyromegaly, Lymphadenopathy (R), Lymphadenopathy (L), Stiff neck, Carotid bruit, Swelling/bruising, Tracheal deviation Respiratory: positive: Chest non-tender, No respiratory distress, Breath sounds nml. negative: Wheezes, Rales, Rhonchi Cardiovascular: positive: Regular rate & rhythm, No murmur, No gallop. negative: Irregularly irregular, Extrasystoles, Tachycardia, Bradycardia, JVD present, Systolic murmur, Diastolic murmur Peripheral Pulses: 2+ Radial (R), 2+ Radial (L), 2+ Dorsalis pedis (R), 2+ Dorsalis pedis (L) Abdomen: positive: Non-tender, No organomegaly, Nml bowel sounds, No distention. negative: Tenderness, Guarding, Rebound Back: positive: Nml inspection. negative: CVA tenderness (R), CVA tenderness (L) Skin: positive: Color nml, No rash, Warm, Dry. negative: Cyanosis, Diaphoresis, Pallor Extremities: positive: Non-tender, Full ROM, Nml appearance. negative: Calf tenderness, Joint swelling, Guillermina's sign/cords Neurologic/Psychiatric: positive: Oriented x3, Motor nml, Sensation nml, Mood/affect nml. negative: Weakness, Sensory loss, Facial droop - Lab Results Fish Bones: 08/20/18 05:44 08/20/18 05:44 Other Labs: Lab Results x24hrs 08/20/18 08/20/18 08/19/18 Range/Units 05:44 05:44 13:54 WBC 7.5 (4.8-10.8) x10^3/uL RBC 4.36 (4.20-5.40) 10^6/uL Hgb 13.9 (12.0-16.0) g/dL Hct 42.9 (37.0-47.0) % MCV 98.6 (81.0-99.0) fL MCH 31.9 H (27.0-31.0) pg MCHC 32.4 (32.0-36.0) g/dL RDW 13.5 (12.0-15.0) % Plt Count 175 (130-450) 10^3/uL MPV 11.3 H (7.9-10.8) fL Neut # (Auto) 4.5 (1.5-6.6) 10^3/uL Lymph # (Auto) 2.1 (1.5-3.5) 10^3/uL [place] # (Auto) 0.6 (0.0-1.0) 10^3/uL Eos # (Auto) 0.2 (0.0-0.7) 10^3/uL Baso # (Auto) 0.1 (0.0-0.1) 10^3/uL Absolute Nucleated RBC 0.00 x10^3/uL Nucleated RBC % 0.1 /100WBC Sodium 141 (135-145) mmol/L Potassium 3.0 L 4.1 (3.5-5.0) mmol/L Chloride 109 (101-111) mmol/L Carbon Dioxide 27 (21-32) mmol/L Anion Gap 5.0 L (6-13) BUN 7 (6-20) mg/dL Creatinine 0.8 (0.4-1.0) mg/dL Estimated GFR (MDRD) 75 L (>89) Glucose 93 (70-100) mg/dL Calcium 8.1 L (8.5-10.3) mg/dL Total Bilirubin 1.1 H (0.2-1.0) mg/dL AST 44 H (10-42) IU/L ALT 139 H (10-60) IU/L Alkaline Phosphatase 84 (42-121) IU/L Total Protein 5.7 L (6.7-8.2) g/dL Albumin 3.5 (3.2-5.5) g/dL Globulin 2.2 (2.1-4.2) g/dL Albumin/Globulin Ratio 1.6 (1.0-2.2) ABX Reporting Has patient been on IV antibiotics over the past 48 hours?: Yes Sepsis Event Note (H) - Evaluation Current Stage of Sepsis: Ruled out Assessment/Plan - Problem List (1) Intractable vomiting with nausea Impression: (1) Intractable vomiting with nausea Impression: 08/20 resolved pt report she has no N/V and abdominal pain is controlled continue IV of protonic (2) diarrhea 08/20 pt complain she still has diarrhea continue PO vancomycin continue IVF pt report she had diarrhea. C.Diff test is positive isolation precaution PO of vancomycin IVF (3) Dehydration Conclusion/Plan: 08/20 improved continue IVF continueIVF lab monitor (4) Hypokalemia Conclusion/Plan: resolved (5) Elevated LFTs Conclusion/Plan: 08/20 continue improved. total bilirubin is down to 1.1. pt denies abdominal pain now continue hold hepatic toxic agents continue lab monitor better, Liver enzyme and total Bilirubin decreased follow hepatitis panel continue lab monitor
[2018-08-20] MEDS: LORazepam 0.5 MG TABLET PO PRN (17:18)
[2018-08-20] MEDS: NICOTINE 14 MG PATCH TOP SCH (18:22)
[2018-08-20 21:13] LABS: HGB - HEMOGLOBIN 14.5 g/dL (12.0-16.0)
[2018-08-21] MEDS: LORazepam 0.5 MG TABLET PO PRN (00:52)
[2018-08-21] MEDS: SODIUM CHLORIDE FLUSH 0.9% 10 ML SYRINGE IVP SCH ×3 (02:18→16:40)
[2018-08-21 06:31] LABS: BASOPHILS # (AUTO) 0.1 10^3/uL (0.0-0.1); EOSINOPHILS # (AUTO) 0.1 10^3/uL (0.0-0.7); EOSINOPHILS % (AUTO) 1.5 %; HGB - HEMOGLOBIN 14.3 g/dL (12.0-16.0); LYMPHOCYTES # (AUTO) 1.5 10^3/uL (1.5-3.5); LYMPHOCYTES % (AUTO) 18.6 %; MEAN CORPUSCULAR HEMOGLOBIN 31.8 pg (27.0-31.0); MEAN CORPUSCULAR HGB CONC 32.8 g/dL (32.0-36.0); MEAN CORPUSCULAR VOLUME 96.7 fL (81.0-99.0); MEAN PLATELET VOLUME 10.7 fL (7.9-10.8); MONOCYTES # (AUTO) 0.7 10^3/uL (0.0-1.0); MONOCYTES % (AUTO) 8.7 %; NEUTROPHILS # (AUTO) 5.8 10^3/uL (1.5-6.6); NEUTROPHILS % (AUTO) 70.2 %; PLT - PLATELET COUNT 197 10^3/uL (130-450); RED BLOOD COUNT 4.51 10^6/uL (4.20-5.40); RED CELL DISTRIBUTION WIDTH 13.4 % (12.0-15.0); WHITE BLOOD COUNT 8.3 x10^3/uL (4.8-10.8)
[2018-08-21] MEDS: SODIUM CHLORIDE 0.9% 1,000 ML IV SCH (06:42)
[2018-08-21] MEDS: PANTOPRAZOLE 40 MG VIAL IVP SCH ×2 (06:43→16:40)
[2018-08-21] MEDS: SODIUM CHLORIDE FLUSH 0.9% 10 ML SYRINGE IVP PRN (06:43)
[2018-08-21 06:47] LABS: ALBUMIN 3.6 g/dL (3.2-5.5); ALBUMIN/GLOBULIN RATIO 1.4 (1.0-2.2); ALKALINE PHOSPHATASE 83 IU/L (42-121); ALT ALANINE AMINOTRANSFERASE 107 IU/L (10-60); AST ASPARTATE AMINOTRANSFERASE 31 IU/L (10-42); BILIRUBIN,TOTAL 0.9 mg/dL (0.2-1.0); BUN - BLOOD UREA NITROGEN < 5 mg/dL (6-20); CALCIUM 8.3 mg/dL (8.5-10.3); CARBON DIOXIDE - CO2 26 mmol/L (21-32); CHLORIDE 107 mmol/L (101-111); CREATININE 0.7 mg/dL (0.4-1.0); GFR - MDRD 87 (>89); GLUCOSE 140 mg/dL (70-100); SODIUM 140 mmol/L (135-145); TOTAL PROTEIN 6.1 g/dL (6.7-8.2)
[2018-08-21] MEDS ORDERED: POTASSIUM CHLORIDE 20 MEQ TABLET PO ONE (07:43)
[2018-08-21] MEDS ORDERED: NICOTINE 14 MG PATCH TOP SCH (09:00)
[2018-08-21] MEDS: VANCOMYCIN 125 MG CAPSULE PO SCH ×3 (09:33→16:40)
[2018-08-21] MEDS: SACCHAROMYCES BOULARDII 250 MG CAPSULE PO SCH ×2 (09:33→16:40)
[2018-08-21] MEDS: risperiDONE 1 MG TABLET PO SCH (09:33)
[2018-08-21] MEDS: NICOTINE 14 MG PATCH TOP SCH (09:33)
[2018-08-21] MEDS: POLYETHYLENE GLYCOL 3350 17 GM PACKET PO SCH (09:34)
[2018-08-21 13:43] LABS: HEPATITIS A IGM NON-REACTIVE (NON-REACTIVE); HEPATITIS B CORE ANTIBODY IGM NON-REACTIVE (NON-REACTIVE); HEPATITIS B SURFACE ANTIGEN NON-REACTIVE (NON-REACTIVE); HEPATITIS C ANTIBODY NON-REACTIVE (NON-REACTIVE)
--- NOTE | 2018-08-21 14:44 | Discharge Plan ---
Discharge Plan Disposition: 01 Home, Self Care Condition: Stable Prescriptions: Fluticasone/Salmeterol [Advair 100-50 Diskus] 1 each IH DAILY #1 blst.w.dev LORazepam [Ativan] 0.5 mg PO Q6H PRN #20 tablet PRN Reason: Anxiety Nicotine 14 mg Patch [Nicoderm] 1 patch TOP DAILY #7 patch Nicotine 7 mg Patch [Nicoderm] 1 each TOP Q24H #7 patch Saccharomyces Boulardii [Florastor] 250 mg PO BID #60 capsule Vancomycin [Vancocin] 125 mg PO QID #32 capsule Diet: Regular Activity Restrictions: No Restrictions Shower Restrictions: No Driving Restrictions: No Weight Bearing: Full Weight Additional Instructions or Follow Up instructions: You were admitted and treated for an infection of your bowels called C. Diff using vancoymcin by mouth. You should continue this for the next 8 days 4xs per day. Please take a probiotic twice daily for the next month to slowly build up your bowel healthy bacteria. You mentioned that you wish to stop smoking, so I have sent over some nicotine patches, and a daily inhaler. You also mentioned that you are not sleeping well, and have anxiety during the day or when you feel the need to smoke. I have sent over some Ativan to be taken just as needed and for a very short time. Please see your primary care provider within one week, or after this antibiotic course. Follow-Up Care: [facility] - Pulmonary No Smoking: If you smoke, Please STOP! Call for help. Follow-up with: Lay Westfall DNP [Primary Care Provider] -
[2018-08-21 15:33] VITALS: BP 118/73
--- NOTE | 2018-08-21 17:25 | DISCHARGE SUMMARY ---
Discharge Summary Admit Date: 08/19/18 Discharge Date: 08/21/18 Discharging Provider: ROSAMARIA Yusuf Primary Care Provider: Chris Rowell Code Status: Attempt Resuscitation Condition at Discharge: Stable Discharge Disposition: 01 Home, Self Care - DIAGNOSES Admission Diagnoses: Intractable nausea and vomiting (R11.2) Dehydration (E86.0) Hypokalemia (E87.6) Elevated LFTs (R94.5) Discharge Diagnoses with Status of Each Condition: Clostridium difficile infection (B96.89) new on this admit, stable and continue 8 more days of oral treatment. Intractable nausea and vomiting (R11.2) resolved. Diarrhea (R19.7) resolved, now down to 2-3 times per day. Dehydration (E86.0) resolved. Hypokalemia (E87.6) resolved, oral supplement given. Elevated LFTs (R94.5) improved, nearly resolved. Tobacco dependence (F17.200) chronic, patient requested nicotine patches. Anxiety (F41.9) chronic, small course of Ativan given. COPD (chronic obstructive pulmonary disease) (J44.9) chronic, stable, LABA sent to the pharmacy. - HPI History of Present Illness: Analy Jj is a 53-year old female with a past medical history of COPD, tobacco dependence, marijuana use, alcoholism, anxiety and insomnia. She presented to the ED with complaints of abdominal cramping, vomiting with out blood, nausea, but no diarrhea, no fever, no chills. She states she has had multiple encounters for N/V between [facility] and ourselves with an admission for pancreatitis a few years ago. She has also had her gallbladder removed. Her states she had her last admission about 2 years ago and she was there close to 2 weeks as they worked her up. She has not been abusing alcohol. She does use cannibus 3-4 times a day to control her shoulder pain. She was just recently seen in the ER and felt better so went home after treatment, but her N/V returned and this time not responding to IVF, phenergan, zofran, haldol in the ER, so she has been admitted to observation. Labs show new hypokalemia and new elevated LFTs. In between episodes of the nausea and vomiting she is with normal appetite and no diarrhea, no pain, but concerns for an infectious process remain. - HOSPITAL COURSE Hospital Course: The patient was found to test positive for c. diff infection and was treated with oral vancomycin, that should continue for the next 8 days. Her symptoms resolved and she was tolerating a regular diet prior to discharge. She requested help with smoking cessation, so nicotine patches, and a LABA inhaler were sent to the pharmacy. She was ambulatory and was transported home with her via private car. - ALLERGIES Allergies/Adverse Reactions: Allergies Allergy/AdvReac Type Severity Reaction Status Date / Time cephalexin Allergy Hallucinati Verified 08/18/18 23:34 ons - MEDICATIONS Home Medications: Ambulatory Orders Medication Instructions Recorded Confirmed risperiDONE [Risperdal] 1 mg PO DAILY 08/19/18 08/19/18 Fluticasone/Salmeterol [Advair 1 each IH DAILY #1 blst.w.dev 08/21/18 100-50 Diskus] LORazepam [Ativan] 0.5 mg PO Q6H PRN #20 tablet 08/21/18 Nicotine 14 mg Patch [Nicoderm] 1 patch TOP DAILY #7 patch 08/21/18 Nicotine 7 mg Patch [Nicoderm] 1 each TOP Q24H #7 patch 08/21/18 Saccharomyces Boulardii [Florastor] 250 mg PO BID #60 capsule 08/21/18 Vancomycin [Vancocin] 125 mg PO QID #32 capsule 08/21/18 - PHYSICAL EXAM AT DISCHARGE General Appearance: positive: No acute distress, Alert, Anxious Eyes Bilateral: positive: PERRL ENT: positive: ENT inspection nml, Pharynx nml, Dry mucous membranes Neck: positive: Thyroid nml, No JVD, Trachea midline Respiratory: positive: Chest non-tender, No respiratory distress, Breath sounds nml Cardiovascular: positive: Regular rate & rhythm, No gallop Peripheral Pulses: positive: 2+ Abdomen: positive: Non-tender, Nml bowel sounds, Other (rounded, soft) Back: positive: Nml inspection Skin: positive: No rash, Warm, Dry Extremities: positive: Non-tender, Full ROM, Nml appearance Neurologic/Psychiatric: positive: Oriented x3, CN's nml (2-12), Motor nml, Sensation nml, Depressed mood/affect (developmentally delayed with slow responses, slow processing.) Reflexes: Bicep (R): 3+, Bicep (L): 3+ - LABS Result Diagrams: 08/21/18 06:12 08/21/18 06:12 - DIAGNOSTIC IMAGING Diagnostic Imaging Results: Final report reviewed Diagnostic Imaging Results Comments: EXAM: CT ABDOMEN AND PELVIS EXAM DATE: 08/19/2018 01:27 AM. IMPRESSION: Abnormal wall thickening of the distal and terminal ileum, suggestive of inflammatory bowel disease. No evidence of bowel obstruction or perforation. Normal appendix. - SEPSIS Current Stage of Sepsis: Ruled out - FOLLOW UP Follow Up: Disposition: Home, Self Care Condition: Stable Prescriptions: Fluticasone/Salmeterol [Advair 100-50 Diskus] 1 each IH DAILY #1 blst.w.dev LORazepam [Ativan] 0.5 mg PO Q6H PRN #20 tablet, PRN Reason: Anxiety Nicotine 14 mg Patch [Nicoderm] 1 patch TOP DAILY #7 patch Nicotine 7 mg Patch [Nicoderm] 1 each TOP Q24H #7 patch Saccharomyces Boulardii [Florastor] 250 mg PO BID #60 capsule Vancomycin [Vancocin] 125 mg PO QID #32 capsule Diet: Regular Additional Instructions or Follow Up instructions: You were admitted and treated for an infection of your bowels called C. Diff using vancoymcin by mouth. You should continue this for the next 8 days 4xs per day. Please take a probiotic twice daily for the next month to slowly build up your bowel healthy bacteria. You mentioned that you wish to stop smoking, so I have sent over some nicotine patches, and a daily inhaler. You also mentioned that you are not sleeping well, and have anxiety during the day or when you feel the need to smoke. I have sent over some Ativan to be taken just as needed and for a very short time. Please see your primary care provider within one week, or after this antibiotic course. - TIME SPENT Time Spent in Discharge (Minutes): 60
== END 2018-08-21 16:55 | disposition home or self-care (01) | DRG 373 ==
LOC: ED 23:25 → MS3 08-19 01:39 → OBS 08-19 02:33 → OBSVTOIN 08-19 15:11 → MS2 08-19 18:32
PROVIDERS: ADMIT Specialist; ATTEND Nurse Practitioner
DX: A04.72 Enterocolitis due to Clostridium difficile, not specified as recurrent (principal); E86.0 Dehydration; E87.6 Hypokalemia; R94.5 Abnormal results of liver function studies; F17.200 Nicotine dependence, unspecified, uncomplicated; F41.0 Panic disorder [episodic paroxysmal anxiety]; F20.9 Schizophrenia, unspecified; J44.9 Chronic obstructive pulmonary disease, unspecified; F10.21 Alcohol dependence, in remission; G47.00 Insomnia, unspecified; M25.519 Pain in unspecified shoulder; K60.2 Anal fissure, unspecified; K57.30 Diverticulosis of large intestine without perforation or abscess without bleeding; R62.50 Unspecified lack of expected normal physiological development in childhood; Z87.19 Personal history of other diseases of the digestive system; Z72.89 Other problems related to lifestyle; Z90.49 Acquired absence of other specified parts of digestive tract
CPT/HCPCS: 36415; 74177; 80053; 80074; 81001; 81003; 83690; 83735; 84100; 84132; 85014; 85018; 85025; 87086; 87493; 96361; 96365; 96366; 96375; 99284; 99285

== ENCOUNTER 2018-08-28 08:00 | Outpatient (CLI) | payer MEDICAID ==
[2018-08-28 18:54] LABS: BASOPHILS # (AUTO) 0.1 10^3/uL (0.0-0.1); EOSINOPHILS # (AUTO) 0.2 10^3/uL (0.0-0.7); EOSINOPHILS % (AUTO) 2.5 %; HGB - HEMOGLOBIN 15.3 g/dL (12.0-16.0); LYMPHOCYTES # (AUTO) 1.8 10^3/uL (1.5-3.5); LYMPHOCYTES % (AUTO) 21.5 %; MEAN CORPUSCULAR HEMOGLOBIN 32.9 pg (27.0-31.0); MEAN CORPUSCULAR HGB CONC 33.6 g/dL (32.0-36.0); MEAN CORPUSCULAR VOLUME 97.9 fL (81.0-99.0); MEAN PLATELET VOLUME 11.1 fL (7.9-10.8); MONOCYTES # (AUTO) 0.6 10^3/uL (0.0-1.0); MONOCYTES % (AUTO) 6.9 %; NEUTROPHILS # (AUTO) 5.6 10^3/uL (1.5-6.6); NEUTROPHILS % (AUTO) 68.1 %; PLT - PLATELET COUNT 267 10^3/uL (130-450); RED BLOOD COUNT 4.64 10^6/uL (4.20-5.40); RED CELL DISTRIBUTION WIDTH 13.8 % (12.0-15.0); WHITE BLOOD COUNT 8.2 x10^3/uL (4.8-10.8)
[2018-08-28 19:14] LABS: CALCIUM 8.7 mg/dL (8.5-10.3); CREATININE 0.9 mg/dL (0.4-1.0)
== END 2018-08-28 08:01 ==
LOC: LAB.N 08:00
PROVIDERS: ATTEND Physician Assistant Medical
DX: A04.72 Enterocolitis due to Clostridium difficile, not specified as recurrent (principal); E87.6 Hypokalemia
CPT/HCPCS: 36415; 80048; 85025

== ENCOUNTER 2019-02-12 10:57 | Emergency (ER) | payer MEDICAID ==
[2019-02-12 11:36] LABS: BASOPHILS # (AUTO) 0.1 10^3/uL (0.0-0.1); BASOPHILS % (AUTO) 0.3 %; HGB - HEMOGLOBIN 15.1 g/dL (12.0-16.0); LYMPHOCYTES # (AUTO) 0.5 10^3/uL (1.5-3.5); LYMPHOCYTES % (AUTO) 2.7 %; MEAN CORPUSCULAR HEMOGLOBIN 31.8 pg (27.0-31.0); MEAN CORPUSCULAR HGB CONC 32.6 g/dL (32.0-36.0); MEAN CORPUSCULAR VOLUME 97.8 fL (81.0-99.0); MEAN PLATELET VOLUME 10.5 fL (7.9-10.8); MONOCYTES # (AUTO) 0.7 10^3/uL (0.0-1.0); MONOCYTES % (AUTO) 3.7 %; NEUTROPHILS # (AUTO) 18.8 10^3/uL (1.5-6.6); NEUTROPHILS % (AUTO) 93.3 %; PLT - PLATELET COUNT 264 10^3/uL (130-450); RED BLOOD COUNT 4.74 10^6/uL (4.20-5.40); RED CELL DISTRIBUTION WIDTH 13.7 % (12.0-15.0); WHITE BLOOD COUNT 20.1 x10^3/uL (4.8-10.8)
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
[2019-02-12 11:38] LABS: BILIRUBIN,URINE NEGATIVE (NEGATIVE); GLUCOSE, URINE (UA) NEGATIVE (NEGATIVE); KETONES,URINE (UA) 40 mg/dL (NEGATIVE); LEUKOCYTE ESTERASE, URINE NEGATIVE (NEGATIVE); NITRITE,URINE POSITIVE (NEGATIVE); OCCULT BLOOD,URINE MODERATE (NEGATIVE); PH,URINE 5.5 PH (5.0-7.5); PROTEIN,URINE 30 mg/dL (NEGATIVE); UROBILINOGEN,URINE 0.2 (NORMAL) E.U./dL (NORMAL)
[2019-02-12 11:39] LABS: CLARITY,URINE HAZY (CLEAR); HCG UR QUAL NEGATIVE
[2019-02-12 11:47] LABS: BACTERIA,URINE Few /HPF (None Seen); SQUAMOUS EPITHELIAL CELL,UR MOD Squamous (<= Few)
[2019-02-12] MEDS ORDERED: MORPHINE 10 MG/ML VIAL IVP STA (11:48)
[2019-02-12] MEDS ORDERED: ONDANSETRON 4 MG/2 ML VIAL IVP STA ×2 (11:48→15:19)
[2019-02-12] MEDS ORDERED: LORazepam 2 MG/ML VIAL IVP STA (11:48)
[2019-02-12] MEDS ORDERED: SODIUM CHLORIDE 0.9% 1,000 ML IV ONE ×2 (11:48→11:50)
[2019-02-12] MEDS ORDERED: DIPHENOX/ATROPINE 2.5/0.025 MG TABLET PO STA (11:50)
[2019-02-12 11:56] LABS: PLATELET ESTIMATE, MANUAL NORMAL (130-450,000) (NORMAL); PLATELET MORPHOLOGY NORMAL APPEARANCE (NORMAL); RBC MORPHOLOGY (MULTIPLE) NORMAL APPEARANCE (NORMAL)
[2019-02-12 11:57] LABS: ALBUMIN 4.7 g/dL (3.2-5.5); ALBUMIN/GLOBULIN RATIO 1.5 (1.0-2.2); BILIRUBIN,TOTAL 0.6 mg/dL (0.2-1.0); CALCIUM 9.6 mg/dL (8.5-10.3); CREATININE 0.9 mg/dL (0.4-1.0); TOTAL PROTEIN 7.8 g/dL (6.7-8.2)
[2019-02-12] MEDS ORDERED: CIPROFLOXACIN 400 MG/200 ML 200 ML IV ONE (12:50)
[2019-02-12 13:43] LABS: BILIRUBIN,URINE NEGATIVE (NEGATIVE); GLUCOSE, URINE (UA) NEGATIVE (NEGATIVE); KETONES,URINE (UA) 15 mg/dL (NEGATIVE); LEUKOCYTE ESTERASE, URINE NEGATIVE (NEGATIVE); NITRITE,URINE POSITIVE (NEGATIVE); OCCULT BLOOD,URINE MODERATE (NEGATIVE); PH,URINE 6.5 PH (5.0-7.5); PROTEIN,URINE NEGATIVE (NEGATIVE); UROBILINOGEN,URINE 0.2 (NORMAL) E.U./dL (NORMAL)
[2019-02-12 13:45] LABS: CLARITY,URINE HAZY (CLEAR)
[2019-02-12 13:55] LABS: BACTERIA,URINE Few /HPF (None Seen); MUCUS,URINE Few Strands; SQUAMOUS EPITHELIAL CELL,UR RARE Squamous (<= Few)
[2019-02-12 15:58] VITALS: BP 167/92
== END 2019-02-12 16:30 | disposition home or self-care (01) ==
LOC: ED 10:57
DX: N12 Tubulo-interstitial nephritis, not specified as acute or chronic (principal); R11.14 Bilious vomiting; F17.200 Nicotine dependence, unspecified, uncomplicated
CPT/HCPCS: 36415; 80053; 81001; 81025; 83605; 83690; 85025; 87086; 87181; 96361; 96365; 96375; 96376; 99284; A9270; J2060; 81003

== ENCOUNTER 2019-06-07 08:00 | Outpatient (CLI) | payer MEDICAID ==
[2019-06-07 19:01] LABS: BASOPHILS # (AUTO) 0.1 10^3/uL (0.0-0.1); BASOPHILS % (AUTO) 0.9 %; EOSINOPHILS # (AUTO) 0.4 10^3/uL (0.0-0.7); EOSINOPHILS % (AUTO) 4.1 %; HGB - HEMOGLOBIN 14.8 g/dL (12.0-16.0); LYMPHOCYTES # (AUTO) 3.1 10^3/uL (1.5-3.5); LYMPHOCYTES % (AUTO) 28.5 %; MEAN CORPUSCULAR HEMOGLOBIN 32.7 pg (27.0-31.0); MEAN CORPUSCULAR HGB CONC 32.3 g/dL (32.0-36.0); MEAN CORPUSCULAR VOLUME 101.1 fL (81.0-99.0); MEAN PLATELET VOLUME 12.7 fL (7.9-10.8); MONOCYTES # (AUTO) 0.8 10^3/uL (0.0-1.0); MONOCYTES % (AUTO) 7.4 %; NEUTROPHILS # (AUTO) 6.3 10^3/uL (1.5-6.6); NEUTROPHILS % (AUTO) 58.9 %; PLT - PLATELET COUNT 284 10^3/uL (130-450); RED BLOOD COUNT 4.53 10^6/uL (4.20-5.40); RED CELL DISTRIBUTION WIDTH 13.2 % (12.0-15.0); WHITE BLOOD COUNT 10.7 x10^3/uL (4.8-10.8)
[2019-06-07 19:16] LABS: HB2 TOTAL 15.4 g/dL; HEMOGLOBIN A1C 0.58 g/dL; HEMOGLOBIN A1C % 5.6 % (4.6-6.2)
[2019-06-07 19:19] LABS: ALBUMIN 4.4 g/dL (3.2-5.5); ALBUMIN/GLOBULIN RATIO 1.4 (1.0-2.2); ALKALINE PHOSPHATASE 95 IU/L (42-121); ALT ALANINE AMINOTRANSFERASE 21 IU/L (10-60); AST ASPARTATE AMINOTRANSFERASE 20 IU/L (10-42); BILIRUBIN,TOTAL 1.3 mg/dL (0.2-1.0); BUN - BLOOD UREA NITROGEN 12 mg/dL (6-20); CALCIUM 9.5 mg/dL (8.5-10.3); CARBON DIOXIDE - CO2 25 mmol/L (21-32); CHLORIDE 107 mmol/L (101-111); CHOL/HDL RATIO 6.3 (<4.4); CHOLESTEROL 302 mg/dL; CREATININE 0.9 mg/dL (0.4-1.0); GFR - MDRD 65 (>89); GLUCOSE 89 mg/dL (70-100); HDL CHOLESTEROL 48 mg/dL; LDL CHOLESTEROL,CALCULATED 240 mg/dL; SODIUM 143 mmol/L (135-145); TOTAL PROTEIN 7.6 g/dL (6.7-8.2); VLDL CHOLESTEROL 14 mg/dL
== END 2019-06-07 23:59 | disposition home or self-care (01) ==
LOC: LAB.N 08:00
PROVIDERS: ATTEND Psychiatry & Neurology Psychiatry
DX: F43.10 Post-traumatic stress disorder, unspecified (principal)
CPT/HCPCS: 36415; 80053; 80061; 83036; 83721; 85025

== ENCOUNTER 2019-09-18 12:04 | Emergency (ER) | payer MEDICAID ==
[2019-09-18 12:16] VITALS: BP 147/96
--- NOTE | 2019-09-18 12:23 | ED Physician Documentation ---
PD HPI FEMALE - Stated complaint Stated Complaint: FEMALE - Chief complaint Chief Complaint: UTI - History obtained from History obtained from: Patient - History of Present Illness Timing - onset: How many weeks ago (has had feeling of dysuria and frequency for several weeks. Also noting some red blood and pain in rectum with bowel movements. Soft stool most of the time.) Timing - duration: Weeks Timing - details: Gradual onset, Waxing and waning Associated symptoms: Dysuria, Urinary frequency. No: Fever, Vaginal discharge, Genital sore/lesion Contributing factors: No: Exposed to STD Similar symptoms before: Has not had sx before Recently seen: Not recently seen Review of Systems Constitutional: denies: Fever, Chills Nose: denies: Rhinorrhea / runny nose, Congestion Throat: denies: Sore throat Respiratory: denies: Cough GI: denies: Vomiting, Diarrhea : reports: Dysuria, Frequency. 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 HEENT: None Psych: Schizophrenia, Panic attacks Musculoskeletal: Other Derm: None - Past Surgical History Past Surgical History: Yes General: Cholecystectomy - Present Medications Home Medications: Ambulatory Orders Medication Instructions Recorded Confirmed risperiDONE [Risperdal] 1 mg PO DAILY 08/19/18 02/12/19 LORazepam [Ativan] 0.5 mg PO Q6H PRN #20 tablet 08/21/18 02/12/19 Ciprofloxacin HCl [Cipro] 500 mg PO BID #14 tablet 02/12/19 Ondansetron Odt [Zofran] 4 mg TL Q6H PRN #15 tablet 02/12/19 Saccharomyces Boulardii [Florastor] 250 mg PO BID #20 capsule 02/12/19 Docusate Sodium 100 mg PO DAILY #30 capsule 09/18/19 Hydrocortisone Acetate [Anucort-Hc] 25 mg RC DAILY #5 supp.rect 09/18/19 Metronidazole [Flagyl] 500 mg PO BID #14 tablet 09/18/19 - Allergies Allergies/Adverse Reactions: Allergies Allergy/AdvReac Type Severity Reaction Status Date / Time cephalexin Allergy Hallucinati Verified 09/18/19 12:12 ons - Social History Does the pt smoke?: Yes Smoking Status: Former smoker Does the pt drink ETOH?: No Does the pt have substance abuse?: Yes - Immunizations Immunizations are current?: Yes - POLST Patient has POLST: No POLST Status: Full Code PD ED PE NORMAL - Vitals Vital signs reviewed: Yes - General General: Alert and oriented X 3, Well developed/nourished - HEENT HEENT: Pharynx benign - Neck Neck: Supple, no meningeal sign, No adenopathy - Cardiac Cardiac: RRR, No murmur - Respiratory Respiratory: Clear bilaterally - Abdomen Abdomen: Soft, Non tender - Female 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 Vault with some thin whitish/clear mild discharge. No odor. No cervicitis. ) - Rectal Rectal: Deferred - Derm Derm: Normal color, Warm and dry, No rash Results - Vitals Vitals: Vital Signs - 24 hr 09/18/19 12:12 Temperature 37.1 C Heart Rate 62 Respiratory 18 Rate Blood Pressure 147/96 H O2 Saturation 98 Oxygen O2 Source Room air - Labs Labs: Laboratory Tests 09/18/19 12:17 Urine Color YELLOW Urine Clarity CLEAR Urine pH 6.5 Ur Specific [place] <=1.005 Urine Protein NEGATIVE Urine Glucose (UA) NEGATIVE Urine Ketones NEGATIVE Urine Occult Blood TRACE-INTA Urine Nitrite NEGATIVE Urine Bilirubin NEGATIVE Urine Urobilinogen 0.2 (NORMAL) Ur Leukocyte Esterase NEGATIVE Ur Microscopic Review NOT INDICATED Urine Culture Comments NOT INDICATED PD MEDICAL DECISION MAKING - ED course Complexity details: considered differential, d/w patient Departure - Departure Disposition: 01 Home, Self Care Clinical Impression: Rectal bleeding, Dysuria Vaginitis Qualifiers: Chronicity: acute Qualified Code(s): N76.0 - Acute vaginitis Condition: Stable Record reviewed to determine appropriate education?: Yes Instructions: ED Hematochezia Stable, ED Vaginosis Bacterial Follow-Up: Chris Rowell PA-C [Primary Care Provider] - Jaz Curry MD [Provider Admit Priv/Credential] - Prescriptions: Docusate Sodium 100 mg PO DAILY #30 capsule Hydrocortisone Acetate [Anucort-Hc] 25 mg RC DAILY #5 supp.rect Metronidazole [Flagyl] 500 mg PO BID #14 tablet Comments: The tests from the vaginal swabs will result in a day and we will call you if we need to change the antibiotic treatment. At this point I would presume it is a bacterial vaginitis and treated with metronidazole twice daily for a week. Regarding the blood with stooling, I would have you take a mild daily stool softener for the next 2 or 3 weeks. Use the hemorrhoid suppository daily for 5 days to decrease inflammation and provide a lubrication for the rectal opening to try to allow better healing. Follow-up with your primary care if not improved on either symptoms over the next week or so. You could follow-up with general surgery regarding getting colonoscopy done to ensure no other reason for rectal bleeding with bowel movements. Discharge Date/Time: 09/18/19 14:15
[2019-09-18] MEDS ORDERED: PHENAZOPYRIDINE 100 MG TABLET PO STA (12:49)
[2019-09-18] MEDS ORDERED: SULFAMETH/TRIMETH DS 800/160 MG TABLET PO STA (12:49)
[2019-09-18] MEDS ORDERED: DOCUSATE SODIUM 100 MG CAPSULE PO STA (12:49)
[2019-09-18 12:59] LABS: BILIRUBIN,URINE NEGATIVE (NEGATIVE); GLUCOSE, URINE (UA) NEGATIVE (NEGATIVE); KETONES,URINE (UA) NEGATIVE (NEGATIVE); LEUKOCYTE ESTERASE, URINE NEGATIVE (NEGATIVE); NITRITE,URINE NEGATIVE (NEGATIVE); OCCULT BLOOD,URINE TRACE-INTA (NEGATIVE); PH,URINE 6.5 PH (5.0-7.5); PROTEIN,URINE NEGATIVE (NEGATIVE); UROBILINOGEN,URINE 0.2 (NORMAL) E.U./dL (NORMAL)
[2019-09-18 13:01] LABS: CLARITY,URINE CLEAR (CLEAR)
[2019-09-18] MEDS ORDERED: metroNIDAZOLE 250 MG TABLET PO STA (13:55)
[2019-09-18] MEDS ORDERED: FLUCONAZOLE 100 MG TABLET PO STA (13:55)
[2019-09-18 20:35] LABS: CANDIDA GROUP DNA NEGATIVE (NEGATIVE); CANDIDA KRUSEI DNA NEGATIVE (NEGATIVE); TRICHOMONAS VAGINALIS DNA NEGATIVE (NEGATIVE)
[2019-09-18 21:25] LABS: TRICHOMONAS VAGINALIS DNA NEGATIVE (NEGATIVE)
== END 2019-09-18 14:15 | disposition home or self-care (01) ==
LOC: ED 12:04
DX: K62.5 Hemorrhage of anus and rectum (principal); R30.0 Dysuria; N76.0 Acute vaginitis; Z87.891 Personal history of nicotine dependence
CPT/HCPCS: 81003; 87481; 87491; 87591; 87661; 87801; 99283; 99284; A9270; 81001; 87086

== ENCOUNTER 2019-10-01 22:59 | Emergency (ER) | payer MEDICAID ==
[2019-10-01 23:19] VITALS: BP 119/85
--- NOTE | 2019-10-01 23:53 | ED Physician Documentation ---
PD HPI URI - Stated complaint Stated Complaint: COUGH,FEVER,CHILLS FOR A WEEK - Chief complaint Chief Complaint: Resp - History obtained from History obtained from: Patient, Family - History of Present Illness Timing - onset: How many weeks ago (2) Timing duration: Weeks (2) Timing details: Gradual onset, Still present Associated symptoms: Fever, Chills, Nasal congestion, Rhinorrhea, Sinus pain, Dry cough Contributing factors: Sick contact Improves by: Rest, Medication Similar symptoms before: Diagnosis (pneumonia) Recently seen: Not recently seen - Additional information Additional information: 54-year-old female has developed cough and congestion over the past week and this is been persistent. Review of Systems Constitutional: reports: Fever, Chills, Myalgias Eyes: denies: Decreased vision Ears: reports: Ear pain Nose: reports: Rhinorrhea / runny nose, Congestion Throat: denies: Sore throat Cardiac: denies: Chest pain / pressure, Palpitations Respiratory: reports: Cough. 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 HEENT: None Psych: Schizophrenia, Panic attacks Musculoskeletal: Other Derm: None - Past Surgical History Past Surgical History: Yes General: Cholecystectomy - Present Medications Home Medications: Ambulatory Orders Medication Instructions Recorded Confirmed risperiDONE [Risperdal] 1 mg PO DAILY 08/19/18 02/12/19 LORazepam [Ativan] 0.5 mg PO Q6H PRN #20 tablet 08/21/18 02/12/19 Ciprofloxacin HCl [Cipro] 500 mg PO BID #14 tablet 02/12/19 Ondansetron Odt [Zofran] 4 mg TL Q6H PRN #15 tablet 02/12/19 Saccharomyces Boulardii [Florastor] 250 mg PO BID #20 capsule 02/12/19 Docusate Sodium 100 mg PO DAILY #30 capsule 09/18/19 Hydrocortisone Acetate [Anucort-Hc] 25 mg RC DAILY #5 supp.rect 09/18/19 Metronidazole [Flagyl] 500 mg PO BID #14 tablet 09/18/19 Azithromycin [Zithromax] 250 mg PO DAILY #4 tablet 10/02/19 - Allergies Allergies/Adverse Reactions: Allergies Allergy/AdvReac Type Severity Reaction Status Date / Time cephalexin Allergy Hallucinati Verified 09/18/19 12:12 ons - Social History Does the pt smoke?: Yes Smoking Status: Current every day smoker Does the pt drink ETOH?: No Does the pt have substance abuse?: Yes Substance Use and Type: Marijuana - Immunizations Immunizations are current?: Yes - POLST Patient has POLST: No POLST Status: Full Code PD ED PE NORMAL - Vitals Vital signs reviewed: Yes (febrile ) - General General: No acute distress, Well developed/nourished - HEENT HEENT: Atraumatic, PERRL, EOMI, Other (left TM is inflamed with rounding of the landmarks. ) - Neck Neck: Supple, no meningeal sign, No bony TTP - Cardiac Cardiac: RRR, No murmur - Respiratory Respiratory: No respiratory distress, Other (rhonchi in the right base) - Abdomen Abdomen: Soft, Non tender - Back Back: No CVA TTP, No spinal TTP - Derm Derm: Normal color, Warm and dry, No rash - Extremities Extremities: No deformity, No edema - Neuro Neuro: Alert and oriented X 3, manager creative services 2-12 intact, No motor deficit, No sensory deficit, Normal speech Eye Opening: Spontaneous Motor: Obeys Commands Verbal: Oriented GCS Score: 15 - Psych Psych: Normal mood, Normal affect Results - Vitals Vitals: Vital Signs - 24 hr 10/01/19 23:16 Temperature 100.1 C H Heart Rate 93 Respiratory 18 Rate Blood Pressure 119/85 H O2 Saturation 93 Oxygen O2 Source Room air - Rads (name of study) chest Radiology: Prelim report reviewed (Impression: 1. Bronchial wall thickening. This can be seen with bronchitis or reactive airways disease.), EMP read indepedently, See rad report PD MEDICAL DECISION MAKING - ED course Complexity details: reviewed results, re-evaluated patient, considered differential, d/w patient, d/w family ED course: 54-year-old female with URI symptoms has otitis on exam and she has bronchitis as well and she is administered dexamethasone we will place her on some azithromycin. Departure - Departure Disposition: 01 Home, Self Care Clinical Impression: Bronchitis Otitis media Qualifiers: Otitis media type: suppurative Chronicity: acute Laterality: left Recurrence: non-recurrent Spontaneous tympanic membrane rupture: without spontaneous rupture Qualified Code(s): H66.002 - Acute suppurative otitis media without spontaneous rupture of ear drum, left ear Instructions: ED Upper Resp Infec Abx Tx, ED Otitis Media Acute Adult Follow-Up: Chris Rowell PA-C [Primary Care Provider] - Prescriptions: Azithromycin [Zithromax] 250 mg PO DAILY #4 tablet Discharge Date/Time: 10/02/19 00:51
[2019-10-02] MEDS ORDERED: DEXAMETHASONE 10 MG/ML VIAL PO STA
[2019-10-02] MEDS ORDERED: CHERRY SYRUP 10 ML UDC PO ONE
[2019-10-02] MEDS ORDERED: AZITHROMYCIN 250 MG TABLET PO STA (00:36)
--- NOTE | 2019-10-02 00:41 | XRAY Report ---
Reason: cough R base rhonchi Procedure Date: 10/02/2019 Accession Number: [id number] / [id number] Procedure: XR - Chest 2 View X-Ray CPT Code: 76351 Final Report FULL RESULT: EXAM: CHEST RADIOGRAPHY EXAM DATE: 10/02/2019 12:30 AM. CLINICAL HISTORY: Cough R base rhonchi. COMPARISON: None. TECHNIQUE: 2 views. FINDINGS: Lungs/Pleura: No alveolar consolidation or pleural effusion seen. Bronchial wall thickening. No pneumothorax. Mediastinum: Heart and mediastinal contours are unremarkable. Other: Status post cholecystectomy. IMPRESSION: 1. Bronchial wall thickening. This can be seen with bronchitis or reactive airways disease. [facility]
== END 2019-10-02 00:51 | disposition home or self-care (01) ==
LOC: ED 22:59
DX: J40 Bronchitis, not specified as acute or chronic (principal); H66.002 Acute suppurative otitis media without spontaneous rupture of ear drum, left ear; F17.200 Nicotine dependence, unspecified, uncomplicated
CPT/HCPCS: 71046; 99283; 99284; A9270

== ENCOUNTER 2019-12-27 08:00 | Outpatient (CLI) | payer MEDICAID ==
[2019-12-27 11:57] LABS: BASOPHILS % (AUTO) 0.3 %; EOSINOPHILS % (AUTO) 0.2 %; HGB - HEMOGLOBIN 15.9 g/dL (12.0-16.0); LYMPHOCYTES # (AUTO) 3.1 10^3/uL (1.5-3.5); LYMPHOCYTES % (AUTO) 23.7 %; MEAN CORPUSCULAR HEMOGLOBIN 32.9 pg (27.0-31.0); MEAN CORPUSCULAR HGB CONC 34.7 g/dL (32.0-36.0); MEAN CORPUSCULAR VOLUME 94.6 fL (81.0-99.0); MEAN PLATELET VOLUME 12.6 fL (7.9-10.8); MONOCYTES # (AUTO) 1.2 10^3/uL (0.0-1.0); MONOCYTES % (AUTO) 8.8 %; NEUTROPHILS # (AUTO) 8.6 10^3/uL (1.5-6.6); NEUTROPHILS % (AUTO) 66.3 %; PLT - PLATELET COUNT 340 10^3/uL (130-450); RED BLOOD COUNT 4.84 10^6/uL (4.20-5.40); RED CELL DISTRIBUTION WIDTH 12.8 % (12.0-15.0)
[2019-12-27 12:11] LABS: CALCIUM 9.2 mg/dL (8.5-10.3)
[2019-12-27 14:43] LABS: HB2 TOTAL 16.4 g/dL; HEMOGLOBIN A1C 0.57 g/dL; HEMOGLOBIN A1C % 5.3 % (4.6-6.2)
== END 2019-12-27 23:59 | disposition home or self-care (01) ==
LOC: LAB.N 08:00
PROVIDERS: ATTEND Physician Assistant Medical
DX: E87.6 Hypokalemia (principal); R73.9 Hyperglycemia, unspecified; R11.2 Nausea with vomiting, unspecified
CPT/HCPCS: 36415; 80048; 83036; 85025

== ENCOUNTER 2020-02-27 15:00 | Outpatient (CLI) | payer MEDICAID | END 2020-02-27 23:59 | disposition home or self-care (01) | LOC: LAB.R 15:00 | PROVIDERS: ATTEND Family Medicine | DX: R30.0 Dysuria (principal) | CPT/HCPCS: 87086; 87181 ==

== ENCOUNTER 2020-04-12 03:37 | Observation (INO) | payer MEDICAID ==
--- NOTE | 2020-04-12 03:39 | ED Physician Documentation ---
History of Present Illness - Stated complaint Stated Complaint: ABD PX/VOMITING - History obtained from History obtained from: Patient (Patient is a 54-year-old femaleWho presents with a chief complaint of nausea and vomiting and abdominal pain. The patient reports that she has been seen multiple times for this and typically goes to [facility] she states she is currently on prednisone for chronic abdominal pain.), Other (She is unsure why she is on daily prednisone. She does admit to heavy marijuana use daily.Reports she has had a previous cholecystectomy.Denies fevers, cough, chest pain or syncope.) Review of Systems Constitutional: reports: Reviewed and negative Eyes: reports: Reviewed and negative Ears: reports: Reviewed and negative Nose: reports: Reviewed and negative Throat: reports: Reviewed and negative Cardiac: reports: Reviewed and negative Respiratory: reports: Reviewed and negative GI: reports: Abdominal Pain, Nausea, Vomiting : reports: Reviewed and negative Skin: reports: Reviewed and negative Musculoskeletal: reports: Reviewed and negative Neurologic: reports: Reviewed and negative Psychiatric: reports: Reviewed and negative Endocrine: reports: Reviewed and negative Immunocompromised: reports: Reviewed and negative PD PAST MEDICAL HISTORY - Past Medical History Cardiovascular: None Respiratory: None Neuro: None Endocrine/Autoimmune: None GI: Pancreatitis 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: Other : None HEENT: None Psych: Schizophrenia, Panic attacks Musculoskeletal: Other Derm: None - Past Surgical History Past Surgical History: Yes General: Cholecystectomy - Present Medications Home Medications: Ambulatory Orders Medication Instructions Recorded Confirmed risperiDONE [Risperdal] 1 mg PO DAILY 08/19/18 02/12/19 LORazepam [Ativan] 0.5 mg PO Q6H PRN #20 tablet 08/21/18 02/12/19 Ciprofloxacin HCl [Cipro] 500 mg PO BID #14 tablet 02/12/19 Ondansetron Odt [Zofran] 4 mg TL Q6H PRN #15 tablet 02/12/19 Saccharomyces Boulardii [Florastor] 250 mg PO BID #20 capsule 02/12/19 Docusate Sodium 100 mg PO DAILY #30 capsule 09/18/19 Hydrocortisone Acetate [Anucort-Hc] 25 mg RC DAILY #5 supp.rect 09/18/19 metroNIDAZOLE [Flagyl] 500 mg PO BID #14 tablet 09/18/19 Azithromycin [Zithromax] 250 mg PO DAILY #4 tablet 10/02/19 - Allergies Allergies/Adverse Reactions: Allergies Allergy/AdvReac Type Severity Reaction Status Date / Time cephalexin Allergy Hallucinati Verified 04/12/20 03:54 ons - Social History Does the pt smoke?: Yes Smoking Status: Current every day smoker Does the pt drink ETOH?: No Does the pt have substance abuse?: Yes - Immunizations Immunizations are current?: Yes - POLST Patient has POLST: No POLST Status: Full Code PD ED PE NORMAL - Vitals Vital signs reviewed: Yes - General General: Alert and oriented X 3, No acute distress, Well developed/nourished - HEENT HEENT: PERRL - Neck Neck: Supple, no meningeal sign - Cardiac Cardiac: RRR, No murmur - Respiratory Respiratory: Clear bilaterally - Abdomen Abdomen: Normal bowel sounds, Soft, Non distended, Other (Diffusely tender to palpation.) - Derm Derm: Warm and dry - Extremities Extremities: No deformity - Neuro Neuro: Alert and oriented X 3 - Psych Psych: Normal mood, Normal affect Results - Vitals Vitals: Vital Signs - 24 hr 04/12/20 04/12/20 03:40 05:36 Temperature 36.1 C L Heart Rate 107 H 79 Respiratory 20 16 Rate Blood Pressure 153/109 H 104/64 O2 Saturation 97 98 Oxygen O2 Source Room air - Labs Labs: Laboratory Tests 04/12/20 04/12/20 04/12/20 04:00 04:00 04:00 WBC 18.8 H RBC 4.81 Hgb 15.7 Hct 45.6 MCV 94.8 MCH 32.6 H MCHC 34.4 RDW 12.6 Plt Count 380 MPV 12.0 H Neut # (Auto) 16.0 H Lymph # (Auto) 1.5 [place] # (Auto) 1.1 H Eos # (Auto) 0.0 Baso # (Auto) 0.1 Absolute Nucleated RBC 0.00 Nucleated RBC % 0.0 PT 14.3 H INR 1.3 H APTT 33.2 VBG pH VBG pCO2 VBG pO2 VBG HCO3 VBG Total CO2 VBG O2 Saturation VBG Base Excess Sodium 139 Potassium 2.9 L Chloride 96 L Carbon Dioxide 19 L Anion Gap 24.0 H BUN 32 H Creatinine 1.4 H Estimated GFR (MDRD) 39 L Glucose 217 H Lactic Acid Calcium 10.1 Magnesium 2.5 Total Bilirubin 1.2 H AST 36 ALT < 10 L Alkaline Phosphatase 87 Total Creatine Kinase 134 Total Protein 8.8 H Albumin 5.4 Globulin 3.4 Albumin/Globulin Ratio 1.6 Lipase 43 Urine Color Urine Clarity Urine pH Ur Specific [place] Urine Protein Urine Glucose (UA) Urine Ketones Urine Occult Blood Urine Nitrite Urine Bilirubin Urine Urobilinogen Ur Leukocyte Esterase Urine RBC Urine WBC Ur Squamous Epith Cells Urine Bacteria Urine Casts Urine Mucus Ur Microscopic Review Urine Culture Comments Urine HCG, Qual Urine Opiates Screen Ur Oxycodone Screen Urine Methadone Screen Ur Propoxyphene Screen Ur Barbiturates Screen Ur Tricyclics Screen Ur Phencyclidine Scrn Ur Amphetamine Screen U Methamphetamines Scrn U Benzodiazepines Scrn Urine Cocaine Screen U Cannabinoids Screen Ethyl Alcohol < 5.0 04/12/20 04/12/20 04/12/20 04:00 04:30 05:50 WBC RBC Hgb Hct MCV MCH MCHC RDW Plt Count MPV Neut # (Auto) Lymph # (Auto) [place] # (Auto) Eos # (Auto) Baso # (Auto) Absolute Nucleated RBC Nucleated RBC % PT INR APTT VBG pH 7.474 H VBG pCO2 33.7 L VBG pO2 174.4 H VBG HCO3 24.2 VBG Total CO2 25.2 VBG O2 Saturation 99.0 H VBG Base Excess 1.2 Sodium Potassium Chloride Carbon Dioxide Anion Gap BUN Creatinine Estimated GFR (MDRD) Glucose Lactic Acid 5.0 H* Calcium Magnesium Total Bilirubin AST ALT Alkaline Phosphatase Total Creatine Kinase Total Protein Albumin Globulin Albumin/Globulin Ratio Lipase Urine Color YELLOW Urine Clarity SL. CLOUDY Urine pH 5.5 Ur Specific [place] >=1.030 H Urine Protein 100 H Urine Glucose (UA) NEGATIVE Urine Ketones >=80 H Urine Occult Blood MODERATE H Urine Nitrite NEGATIVE Urine Bilirubin NEGATIVE Urine Urobilinogen 0.2 (NORMAL) Ur Leukocyte Esterase NEGATIVE Urine RBC 6-10 H Urine WBC 0-3 Ur Squamous Epith Cells MANY Squamous H Urine Bacteria Few Urine Casts 3-5 Hyaline Casts Urine Mucus Marked Strands Ur Microscopic Review INDICATED Urine Culture Comments NOT INDICATED Urine HCG, Qual NEGATIVE Urine Opiates Screen POSITIVE H Ur Oxycodone Screen NEGATIVE Urine Methadone Screen NEGATIVE Ur Propoxyphene Screen NEGATIVE Ur Barbiturates Screen NEGATIVE Ur Tricyclics Screen NEGATIVE Ur Phencyclidine Scrn NEGATIVE Ur Amphetamine Screen NEGATIVE U Methamphetamines Scrn NEGATIVE U Benzodiazepines Scrn NEGATIVE Urine Cocaine Screen NEGATIVE U Cannabinoids Screen POSITIVE H Ethyl Alcohol PD MEDICAL DECISION MAKING - ED course Complexity details: reviewed old records, reviewed results, re-evaluated patient, considered differential (Dehydration, Gastritis, enteritis, inflammatory bowel disease, hypo-kalemia, Hypokalemic, hypochloremic metabolic alkalosis.), d/w patient, d/w family Departure - Departure Disposition: ED Place in Observation Clinical Impression: Enteritis, Hypokalemia, Elevated lactic acid level Abdominal pain Qualifiers: Abdominal location: unspecified location Qualified Code(s): R10.9 - Unspecified abdominal pain Vomiting Qualifiers: Vomiting type: unspecified Vomiting Intractability: unspecified Nausea presence: with nausea Qualified Code(s): R11.2 - Nausea with vomiting, unspecified Leukocytosis Qualifiers: Leukocytosis type: unspecified Qualified Code(s): D72.829 - Elevated white blood cell count, unspecified Condition: Stable
[2020-04-12] MEDS ORDERED: SODIUM CHLORIDE 0.9% 1,000 ML IV STA ×2 (04:02→04:24)
[2020-04-12] MEDS ORDERED: ONDANSETRON 4 MG/2 ML VIAL IVP STA (04:02)
[2020-04-12] MEDS ORDERED: MORPHINE 2 MG/ML CARPUJECT IVP STA (04:02)
[2020-04-12 04:10] LABS: BASOPHILS # (AUTO) 0.1 10^3/uL (0.0-0.1); BASOPHILS % (AUTO) 0.3 %; EOSINOPHILS % (AUTO) 0.1 %; HGB - HEMOGLOBIN 15.7 g/dL (12.0-16.0); LYMPHOCYTES # (AUTO) 1.5 10^3/uL (1.5-3.5); LYMPHOCYTES % (AUTO) 8.1 %; MEAN CORPUSCULAR HEMOGLOBIN 32.6 pg (27.0-31.0); MEAN CORPUSCULAR HGB CONC 34.4 g/dL (32.0-36.0); MEAN CORPUSCULAR VOLUME 94.8 fL (81.0-99.0); MONOCYTES # (AUTO) 1.1 10^3/uL (0.0-1.0); MONOCYTES % (AUTO) 5.7 %; NEUTROPHILS % (AUTO) 85.1 %; PLT - PLATELET COUNT 380 10^3/uL (130-450); RED BLOOD COUNT 4.81 10^6/uL (4.20-5.40); RED CELL DISTRIBUTION WIDTH 12.6 % (12.0-15.0); WHITE BLOOD COUNT 18.8 x10^3/uL (4.8-10.8)
[2020-04-12 04:15] LABS: INR 1.3 (0.8-1.2); PT - PROTHROMBIN TIME 14.3 secs (9.9-12.6)
[2020-04-12] MEDS ORDERED: IOVERSOL 320 100 ML VIAL IVP ONE ×2 (04:21→05:40)
[2020-04-12 04:22] LABS: PARTIAL THROMBOPLASTIN TIME 33.2 secs (24.9-33.3)
[2020-04-12] MEDS ORDERED: LORazepam 2 MG/ML VIAL IVP STA (04:26)
[2020-04-12 04:28] LABS: ALBUMIN 5.4 g/dL (3.2-5.5); ALBUMIN/GLOBULIN RATIO 1.6 (1.0-2.2); ALKALINE PHOSPHATASE 87 IU/L (42-121); ALT ALANINE AMINOTRANSFERASE < 10 IU/L (10-60); AST ASPARTATE AMINOTRANSFERASE 36 IU/L (10-42); BILIRUBIN,TOTAL 1.2 mg/dL (0.2-1.0); BUN - BLOOD UREA NITROGEN 32 mg/dL (6-20); CALCIUM 10.1 mg/dL (8.5-10.3); CARBON DIOXIDE - CO2 19 mmol/L (21-32); CHLORIDE 96 mmol/L (101-111); CK- CREATINE KINASE 134 IU/L (22-269); CREATININE 1.4 mg/dL (0.4-1.0); GLUCOSE 217 mg/dL (70-100); LIPASE 43 U/L (22-51); MAGNESIUM 2.5 mg/dL (1.7-2.8); SODIUM 139 mmol/L (135-145); TOTAL PROTEIN 8.8 g/dL (6.7-8.2)
[2020-04-12 04:43] LABS: MUDS CUTOFF CONCENTRATIONS CUTOFF CONC BELOW:
[2020-04-12 04:46] LABS: GLUCOSE, URINE (UA) NEGATIVE (NEGATIVE); KETONES,URINE (UA) >=80 mg/dL (NEGATIVE); LEUKOCYTE ESTERASE, URINE NEGATIVE (NEGATIVE); NITRITE,URINE NEGATIVE (NEGATIVE); OCCULT BLOOD,URINE MODERATE (NEGATIVE); PH,URINE 5.5 PH (5.0-7.5); PROTEIN,URINE 100 mg/dL (NEGATIVE); UROBILINOGEN,URINE 0.2 (NORMAL) E.U./dL (NORMAL)
[2020-04-12 04:49] LABS: BILIRUBIN,URINE NEGATIVE (NEGATIVE); CLARITY,URINE SL. CLOUDY (CLEAR); HCG UR QUAL NEGATIVE; ICTOTEST,URINE NEGATIVE
[2020-04-12] MEDS ORDERED: POTASSIUM CHLOR 20 MEQ/100 ML 20 MEQ/100 ML BAG IV ONE (04:51)
[2020-04-12 04:52] LABS: BACTERIA,URINE Few /HPF (None Seen); CASTS, URINE 3-5 Hyaline Casts /LPF; MUCUS,URINE Marked Strands; SQUAMOUS EPITHELIAL CELL,UR MANY Squamous (<= Few)
[2020-04-12 05:06] LABS: AMPHETAMINE SCREEN,URINE NEGATIVE (NEGATIVE); BENZODIAZEPINES SCREEN, URINE NEGATIVE (NEGATIVE); COCAINE SCREEN URINE NEGATIVE (NEGATIVE); METHADONE SCREEN, URINE NEGATIVE (NEGATIVE); METHAMPHETAMINES SCREEN, URINE NEGATIVE (NEGATIVE); OPIATE SCREEN, URINE POSITIVE (NEGATIVE); OXYCODONE SCREEN, URINE NEGATIVE (NEGATIVE); PROPOXYPHENE SCREEN, URINE NEGATIVE (NEGATIVE); TRICYCLIC ANTIDEPRESSANT,URINE NEGATIVE (NEGATIVE)
[2020-04-12 06:05] LABS: VBG BASE EXCESS 1.2 mmol/L (-2 - +2); VBG PCO2 33.7 mmHg (41-51); VBG PH 7.474 (7.31-7.41); VBG PO2 174.4 mmHg (25-47); VBG TOTAL CO2 25.2 mmol/L (24-29)
[2020-04-12] MEDS ORDERED: SODIUM CHLORIDE FLUSH 0.9% 10 ML SYRINGE IVP PRN (06:24)
[2020-04-12] MEDS ORDERED: ONDANSETRON ODT 4 MG TABLET TL PRN (06:24)
[2020-04-12] MEDS ORDERED: ONDANSETRON 4 MG/2 ML VIAL IVP PRN (06:24)
[2020-04-12] MEDS ORDERED: MORPHINE 2 MG/ML CARPUJECT IVP PRN (06:24)
[2020-04-12] MEDS ORDERED: metroNIDAZOLE 500 MG/100 ML 500 MG/100 ML BAG IV SCH (07:00)
[2020-04-12] MEDS ORDERED: CIPROFLOXACIN 400 MG/200 ML 400 MG/200 ML BAG IV SCH (07:00)
--- NOTE | 2020-04-12 07:16 | HISTORY & PHYSICAL EXAMINATION ---
Chief Complaint - Chief Complaint Chief Complaint: Nausea and vomiting History of Present Illness - Admitted From Admitted From:: Home - History Obtained From Records Reviewed: Yes History obtained from: Patient, ER Physician, EMR, Record from [facility] - History of Present Illness HPI Comment/Other: This is a 54-year-old female with a past medical history significant for schizophrenia but is not on any medications, daily marijuana use, recurrent admissions for intractable nausea/vomiting who presents today complaining of nausea and vomiting. She states her symptoms initially began about 1 week ago when she started to have daily episodes of vomiting. She thought it was related to the cup of coffee she would have in the morning as she would only vomit during that time and will be fine for the rest of the day. Over the past 2 days she continues to have vomiting but it would persist throughout the day. She would try Zofran with minor relief. She reports should have the most relief by taking a hot shower. She does smoke marijuana on a daily basis about half a gram. She has been smoking since she was about 15 years old. She reports some mild abdominal pain. She reports her emesis is nonbloody. Denies any fevers, chills, sick contacts. She reports some dysuria but denies any hematuria. She reports finishing treatment for urinary tract infection about 2 weeks ago. She states she was hospitalized about 2 months ago at [facility] for similar symptoms. She states she was hospitalized for 12 days as they could not get her nausea and vomiting under control. She reports no chest pain but endorses dyspnea when she has panic attacks associated with these episodes of vomiting. She denies any diarrhea. In the emergency department, she is found to be afebrile with temperature of 36.1 C. She was initially tachycardic with a heart of 107. Her blood pressure was 153/109. Her respiratory was 20 and she was saturating 97% on room air. Labs were significant for white count of 18.8 with a left shift. Potassium was 2.9, bicarbonate was 19, anion gap was 24, BUN was 32, creatinine was 1.4, and lactic acid was 5. Her urinalysis was not a clean-catch but did not reveal any WBCs. CT of the abdomen pelvis showed nonspecific findings concerning for possible enteritis but no evidence of obstruction. She was given 2 L of saline in the emergency department as well as antiemetics. Given the findings above, medicine was consulted for admission. History - Past Medical History Cardiovascular: reports: None Respiratory: reports: None Neuro: reports: None Endocrine/Autoimmune: reports: None GI: reports: C.difficile, Pancreatitis, Cholelithiasis : reports: None HEENT: reports: None Psych: reports: Schizophrenia, Panic attacks Musculoskeletal: reports: Other Derm: reports: None MRSA Hx?: No - Past Surgical History General: reports: Cholecystectomy - Family & Social History Family History Comment/Other: She reports her mother is alive and healthy. She did have breast cancer. Reports her father had a history of stroke and from myocardial infarction. Reports no other family history to her omar espinoza. Living arrangement: At home Living Situation: With family Social History Notes: She lives at home with her boyfriend, son, grandson. She states she smokes half a gram of marijuana on a daily basis since the age of 15. She also smokes half a pack of cigarettes on a daily basis since the age of 14. She reports rare alcohol use. She reports everyone else in the family smokes and uses marijuana and therefore it has been difficult for her to try and quit.. - Substance History Use: Uses substance without health or social issues: Alcohol Abuse: Recurrent use of substance despite neg consequences: Cannabis Abuse Issues: Other (Nausea/Vomiting) - POLST Patient has POLST: No POLST Status: Full Code Meds/Allgy - Home Medications Home Medications: Ambulatory Orders Medication Instructions Recorded Confirmed Docusate Sodium 100 mg PO DAILY #30 capsule 09/18/19 - Allergies Allergies/Adverse Reactions: Allergies Allergy/AdvReac Type Severity Reaction Status Date / Time cephalexin Allergy Hallucinati Verified 04/12/20 03:54 ons Review of Systems - Constitutional Constitutional: reports: Malaise, Poor appetite. denies: Fatigue, Fever, Chills - Ears, Nose & Throat Ears, Nose & Throat: denies: Nasal discharge, Nasal congestion, Sore throat - Cardiovascular Cariovascular: denies: Chest pain, Exertional dyspnea, Decr. exercise tolerance - Respiratory Respiratory: reports: SOB at rest. denies: Cough - Gastrointestinal Gastrointestinal: reports: Abdominal pain, Nausea, Vomiting, Bile emesis, Poor appetite. denies: Diarrhea, Black stools, Bloody stools, Wilmer blood emesis, Coffee grounds emesis - Genitourinary Genitourinary: reports: Dysuria. denies: Frequency, Urgency, Hematuria - Musculoskeletal Musculoskeletal: denies: Muscle pain, Muscle aches, Limited range of motion - Integumentary Integumentary: denies: Rash - Neurological Neurological: reports: Numbness - Psychiatric Psychiatric: reports: Anxiety - Endocrine Endocrine: denies: Polyuria - Hematologic/Lymphatic Hematologic/Lymphatic: denies: Anemia, Bleeding tendencies - All Other Systems All Other Systems: reports: Reviewed and negative Prior Level of Functionality: She is independent with her ADL's. Exam - Vital Signs Reviewed Vital Signs: Yes Vital Signs: Vital Signs x48h Temp Pulse Resp BP Pulse Ox 04/12/20 05:36 79 16 104/64 98 04/12/20 03:40 36.1 C L 107 H 20 153/109 H 97 - Physical Exam General Appearance: positive: No acute distress, Alert. negative: Mild distress, Anxious Eyes Bilateral: positive: Normal inspection, Conjunctivae nml ENT: positive: ENT inspection nml Neck: positive: Nml inspection Respiratory: positive: No respiratory distress. negative: Wheezes, Rales, Rhonchi Cardiovascular: positive: Regular rate & rhythm, No murmur. negative: Tachycardia, Systolic murmur, Diastolic murmur Abdomen: positive: Non-tender, Nml bowel sounds, No distention, Other (Soft.). negative: Tenderness, Guarding, Rebound Skin: positive: Warm, Dry Extremities: positive: Full ROM, No pedal edema Neurologic/Psychiatric: positive: Oriented x3, Motor nml. negative: Disoriented to person, Disoriented to place, Disoriented to time Sepsis Event Note (H) - Evaluation Current Stage of Sepsis: Sepsis Possible source of Sepsis: positive: Unknown - Sepsis Criteria Sepsis Criteria: Recorded Heart Rate greater than 90 bpm, WBC count greater than 12,000 or less than 4000, Metabolic: lactate > 2 mmol/L Conclusion/Plan - Problem List (1) Cannabinoid hyperemesis syndrome Conclusion/Plan: Suspect the cause of her nausea and vomiting given this is a chronic problem for her and she reports improvement with taking a hot shower. CT of the abdomen pelvis did reveal possible enteritis but on exam she is nontender and she reports no diarrhea. There is no evidence of obstruction on imaging. We will start her on a clear liquid diet as tolerated. Antiemetics with Zofran and Compazine as needed. [employer] Supervisor her on the importance of marijuana cessation and she would like to quit but she states it is quite difficult given the rest of her family smokes as well. Will consult social work for assistance. (2) SIRS (systemic inflammatory response syndrome) Conclusion/Plan: She meets sirs criteria given her tachycardia, leukocytosis. She also has elevated lactic acid. At this time, this appears to be secondary to her nausea and vomiting and likely reactive but we will need to rule out sepsis. Blood cultures have been ordered. Her urine is unremarkable. CT abdomen pelvis not reveal any obvious infection. We will hold off on antibiotics for the time being unless there is an obvious source of infection or if she were to spike a fever or become hypotensive. (3) Acute kidney injury Conclusion/Plan: This is likely prerenal injury given her nausea and vomiting. Her baseline creatinine is approximately 0.9. Her creatinine now is 1.4. We will treat her with IV fluids. Monitor renal function and urine output. (4) Elevated lactic acid level Conclusion/Plan: Her lactic acid is elevated at 5 and she does have a white count of 18. There appears to be no obvious source of infection at this time. Suspect this is likely related to dehydration. We will treat her with IV fluids. Check blood cultures. Repeat lactic. We will hold off on antibiotics for the meantime. She had a similar presentation at [facility] but I only have the ED records available to me. We will attempt to obtain the inpatient records from that [facility]. (5) Leukocytosis Conclusion/Plan: Suspect this is likely reactive given her nausea and vomiting. There is no obvious source of infection at this time. We will check blood cultures and trend her white count. We will hold off on antibiotics for the time being. Qualifiers: Leukocytosis type: unspecified Qualified Code(s): D72.829 - Elevated white blood cell count, unspecified (6) Hypokalemia Conclusion/Plan: This is likely secondary to her GI losses. Will replace intravenously and recheck. - Lab Results Lab results reviewed: Yes Fish Bones: 04/12/20 04:00 04/12/20 04:00 - Diagnostic Imaging Results Diagnostic Imaging Results: positive: Final report reviewed Core Measures - Anticipated LOS I expect patient to be DC'd or transferred within 96 hours.: Yes - Issues Hospital Issues and Management Plan: 54-year-old female admitted for abdominal pain with nausea and vomiting found to have acute kidney injury and elevated lactic acid. CT concerning for enteritis. Will treat with empiric IV antibiotics and IV hydration. Trend labs. Will place in observation - DVT/VTE - Prophylaxis VTE/DVT Device ordered at admit?: Yes VTE/DVT Prophylaxis med ordered at admit?: Yes
[2020-04-12] MEDS: PANTOPRAZOLE 40 MG VIAL IVP SCH (07:37)
[2020-04-12] MEDS: POTASSIUM CHLOR 10 MEQ/100 ML 10 MEQ/100 ML BAG IV SCH ×5 (07:37→12:11)
[2020-04-12] MEDS: SODIUM CHLORIDE FLUSH 0.9% 10 ML SYRINGE IVP SCH ×3 (07:38→23:32)
--- NOTE | 2020-04-12 09:19 | CT Report ---
PROCEDURE: Abdomen/Pelvis W INDICATIONS: ABD PAIN CONTRAST: IV CONTRAST: Optiray 320 ml: 100 PO CONTRAST: *NO PO CONTRAST TECHNIQUE: After the administration of oral and intravenous contrast, 5 mm thick sections acquired from the diap hragms to the symphysis. 5 mm thick coronal and sagittal reformats were acquired. For radiation dos e reduction, the following was used: automated exposure control, adjustment of mA and/or kV accordin g to patient size. COMPARISON: CT abdomen pelvis 08/19/2018 FINDINGS: Image quality: Excellent. ABDOMEN: Lung bases: Lung bases are clear. Heart size is normal. Solid organs: Liver and spleen are normal in size and enhancement. Gallbladder has been removed Bi liary system is non dilated. Pancreas enhances normally. No adrenal nodules. Kidneys demonstrate n ormal size and enhancement, without hydronephrosis. Peritoneum and bowel: Bowel loops are nonobstructive. Prominent fat is present within the distal ile um wall, unchanged compared to prior exam. There is a mild appearance of fluid levels within the smal l intestine without dilation.. No free fluid or air. Nodes and vessels: No retroperitoneal or mesenteric adenopathy by size criteria. Aorta and inferior vena cava are normal in size. Miscellaneous: No ventral hernias. PELVIS: Genitourinary: Bladder wall thickness is normal. Miscellaneous: No inguinal hernias or adenopathy. Bones: No suspicious bony lesions. No vertebral body compression fractures. IMPRESSION: 1. Mild fluid levels within the small intestine without dilation. This can be seen with enteritis. 2. Fat deposition within the distal ileum, unchanged. It is nonspecific. However, recommend correlati on to history of inflammatory bowel disease. The above findings are concordant with preliminary report. Reviewed by: Nicky Dunham MD on 04/12/2020 9:18 AM PDT Approved by: Nicky Dunham MD on 04/12/2020 9:18 AM PDT Station ID: [id number]
[2020-04-12] MEDS: ENOXAPARIN 40 MG/0.4 ML SYRINGE SUBQ SCH (10:00)
[2020-04-12] MEDS ORDERED: PROCHLORPERAZINE 10 MG/2 ML VIAL IVP PRN (12:30)
[2020-04-12 12:34] LABS: CALCIUM 8.2 mg/dL (8.5-10.3); CREATININE 0.9 mg/dL (0.4-1.0)
--- NOTE | 2020-04-12 12:57 | PHARMACY PROGRESS NOTE ---
- Best Possible Medication History Admit Date and Time: 04/12/20623 Processed by: Pharmacy Medication History completed: Yes Patient Interview: Completed As the person ultimately responsible for medication therapy, providers are able to order a medication from an existing home medication list in [facility] via the "Reconcile Routine" prior to Confirmation of that medication by technical support representative. Such practice is discouraged except when the physician, in their clinical ambar gment, deems that a medical need exists for a medication without regard to previous use.
[2020-04-12] MEDS: SODIUM CHLORIDE 0.9% 1,000 ML IV SCH ×2 (13:12→22:23)
[2020-04-13 05:13] LABS: BASOPHILS # (AUTO) 0.1 10^3/uL (0.0-0.1); BASOPHILS % (AUTO) 0.8 %; EOSINOPHILS % (AUTO) 0.4 %; HGB - HEMOGLOBIN 12.3 g/dL (12.0-16.0); LYMPHOCYTES % (AUTO) 35.5 %; MEAN CORPUSCULAR HEMOGLOBIN 32.4 pg (27.0-31.0); MEAN CORPUSCULAR HGB CONC 31.9 g/dL (32.0-36.0); MEAN CORPUSCULAR VOLUME 101.3 fL (81.0-99.0); MONOCYTES # (AUTO) 0.6 10^3/uL (0.0-1.0); MONOCYTES % (AUTO) 7.4 %; NEUTROPHILS # (AUTO) 4.7 10^3/uL (1.5-6.6); NEUTROPHILS % (AUTO) 55.4 %; PLT - PLATELET COUNT 235 10^3/uL (130-450); RED CELL DISTRIBUTION WIDTH 12.6 % (12.0-15.0); WHITE BLOOD COUNT 8.4 x10^3/uL (4.8-10.8)
[2020-04-13 05:24] LABS: CALCIUM 8.5 mg/dL (8.5-10.3); CREATININE 0.9 mg/dL (0.4-1.0)
[2020-04-13 05:28] LABS: HB2 TOTAL 12.9 g/dL; HEMOGLOBIN A1C 0.48 g/dL; HEMOGLOBIN A1C % 5.6 % (4.6-6.2)
[2020-04-13] MEDS: PANTOPRAZOLE 40 MG VIAL IVP SCH (06:01)
--- NOTE | 2020-04-13 07:21 | Discharge Plan ---
Discharge Plan Problem Reviewed?: Yes Disposition: Home, Self Care Condition: Good Diet: Regular Activity Restrictions: Activity as Tolerated Shower Restrictions: No Driving Restrictions: No Health Concerns: You were seen in the hospital because you had nausea and vomiting which caused you to be dehydrated. It is believed that this is due to your daily marijuana use. You improved with IV fluids and nausea medications. Your labs have improved and returned to normal. You are now stable for discharge. It is recommended that you take the nausea medications as needed and that you stop smoking marijuana. It is also recommended you follow-up with a GI doctor. Plan of Treatment: Please follow-up with your primary care provider and asked to be referred to a GI specialist. Care Goals: It is highly encouraged that you stop smoking marijuana as this can lead to persistent nausea and vomiting. This usually only improves with hot showers. The treatment is to stop smoking marijuana and the nausea/vomiting will eventually resolve. Assessment: Patient expressed understanding of the treatment plan. Additional Instructions or Follow Up instructions: Please follow-up with your primary care physician within 1 week and ask to be referred to GI. No Smoking: If you smoke, Please STOP! Call for help.
--- NOTE | 2020-04-13 07:42 | DISCHARGE SUMMARY ---
"Discharge Summary Admit Date: 04/12/20 Discharge Date: 04/13/20 Discharging Provider: Jabari Walls Primary Care Provider: Navid Rosenie Markus Code Status: Attempt Resuscitation Condition at Discharge: Good Discharge Disposition: 01 Home, Self Care - DIAGNOSES Admission Diagnoses: Cannabinoid hyperemesis syndrome SIRS Acute kidney injury Elevated lactic acid level Leukocytosis Hypokalemia Discharge Diagnoses with Status of Each Condition: Cannabinoid hyperemesis syndrome - resolved. SIRS - resolved. Acute kidney injury - resolved. Elevated lactic acid level - resolved. Leukocytosis - resolved. Hypokalemia - resolved. - HPI History of Present Illness: This is a 54-year-old female with a past medical history significant for schizophrenia but is not on any medications, daily marijuana use, recurrent admissions for intractable nausea/vomiting who presents today complaining of n ausea and vomiting. She states her symptoms initially began about 1 week ago when she started to have daily episodes of vomiting. She thought it was related to the cup of coffee she would have in the morning as she would only vomit during that time and will be fine for the rest of the day. Over the past 2 days she continues to have vomiting but it would persist throughout the day. She would try Zofran with minor relief. She reports should have the most relief by taking a hot shower. She does smoke marijuana on a daily basis about half a gram. She has been smoking since she was about 15 years old. She reports some mild abdominal pain. She reports her emesis is nonbloody. Denies any fevers, chills, sick contacts. She reports some dysuria but denies any hematuria. She reports finishing treatment for urinary tract infection about 2 weeks ago. She states she was hospitalized about 2 months ago at [facility] for similar symptoms. She states she was hospitalized for 12 days as they could not get her nausea and vomiting under control. She reports no chest pain but endorses dyspnea when she has panic attacks associated with these episodes of vomiting. She denies any diarrhea. In the emergency department, she is found to be afebrile with temperature of 36.1 C. She was initially tachycardic with a heart of 107. Her blood pressure was 153/109. Her respiratory was 20 and she was saturating 97% on room air. Labs were significant for white count of 18.8 with a left shift. Potassium was 2.9, bicarbonate was 19, anion gap was 24, BUN was 32, creatinine was 1.4, and lactic acid was 5. Her urinalysis was not a clean-catch but did not reveal any WBCs. CT of the abdomen pelvis showed nonspecific findings concerning for possible enteritis but no evidence of obstruction. She was given 2 L of saline in the emergency department as well as antiemetics. Given the findings above, medicine was consulted for admission. - CONSULTS | PROCEDURES Procedures: CT of the abdomen and pelvis with IV contrast showed mild fluid levels in the small intestine without dilation. This can be seen with enteritis. Fat deposition within the distal ileum, unchanged. It is nonspecific. However, recommend correlation to history of inflammatory bowel disease. - HOSPITAL COURSE Hospital Course: She was admitted to the floor for acute kidney injury and elevated lactic acid which was believed to be secondary to dehydration due to nausea and vomiting. It was believed that her nausea and vomiting was secondary to cannabinoid hyperemesis syndrome given her daily marijuana use. She was treated with multiple liters of IV fluids and maintenance IV fluids with resolution of her elevated lactic acid. Her renal function also returned to baseline. Her white count was initially 18,000 on admission and she was pancultured without any obvious source of infection. She was not started on antibiotics and this was monitored. The following day her white count improved to 8000 and was felt that it was likely reactive in nature as well as a component of hemoconcentration given all of her counts decreased with IV fluids. Her blood cultures have also been negative to date after 24 hours. She has required minimal anti-emetics during this hospitalization and she has been tolerating a diet without difficulty. We discussed the importance of marijuana cessation but she states that she will not stop marijuana as everyone in her family smokes it. He also does not believe that the marijuana is causing her nausea and vomiting. I offered to prescribe her Zofran but she declined stating that she already has Zofran at home and does not need another prescription. I asked her to follow-up with her old primary care physician's office at [facility] and asked to be referred to gastroenterology given her multiple episodes of admission for nausea/vomiting. She is agreeable to this. - ALLERGIES Allergies/Adverse Reactions: Allergies Allergy/AdvReac Type Severity Reaction Status Date / Time cephalexin Allergy Hallucinati Verified 04/12/20 03:54 ons - MEDICATIONS Home Medications: Ambulatory Orders Medication Instructions Recorded Confirmed No Known Home Medications 04/12/20 04/12/20 - PHYSICAL EXAM AT DISCHARGE General Appearance: positive: No acute distress, Alert Eyes Bilateral: positive: Normal inspection ENT: positive: ENT inspection nml, No signs of dehydration Neck: positive: Nml inspection Respiratory: positive: No respiratory distress. negative: Wheezes, Rales, Rhonchi Cardiovascular: positive: Regular rate & rhythm, No murmur. negative: Tachycardia, Bradycardia Abdomen: positive: Non-tender, Nml bowel sounds, No distention. negative: Tenderness, Guarding, Rebound Skin: positive: No rash, Warm, Dry Extremities: positive: Full ROM, No pedal edema Neurologic/Psychiatric: positive: Oriented x3, Motor nml. negative: Disoriented to person, Disoriented to place, Disoriented to time Physical Exam Other/Comments: Vital Signs - 24 hr 04/12/20 04/12/20 04/12/20 13:00 15:51 20:02 Temperature 37.0 C 37.2 C 37.3 C Heart Rate [ 64 59 L 72 Brachial] Respiratory 18 16 16 Rate Blood Pressure 130/76 [Left Brachial artery] Blood Pressure 98/57 L 126/86 H [Right Brachial artery] O2 Saturation 99 95 99 04/13/20 04/13/20 04/13/20 00:00 04:59 05:59 Temperature 37.3 C 37.1 C Heart Rate [ 82 46 L 50 L Brachial] Respiratory 20 18 Rate Blood Pressure [Left Brachial artery] Blood Pressure 111/62 114/61 105/66 [Right Brachial artery] O2 Saturation 98 98 - LABS Result Diagrams: 04/13/20 04:50 04/13/20 04:50 Other Lab Results: Laboratory Results - last 24 hr 04/12/20 04/12/20 04/13/20 12:19 12:19 04:50 WBC 8.4 RBC 3.80 L Hgb 12.3 Hct 38.5 MCV 101.3 H MCH 32.4 H MCHC 31.9 L RDW 12.6 Plt Count 235 MPV 12.0 H Neut # (Auto) 4.7 Lymph # (Auto) 3.0 Hitchcock # (Auto) 0.6 Eos # (Auto) 0.0 Baso # (Auto) 0.1 Absolute Nucleated RBC 0.00 Nucleated RBC % 0.0 Sodium 138 Potassium 4.2 Chloride 105 Carbon Dioxide 23 Anion Gap 10.0 BUN 20 Creatinine 0.9 Estimated GFR (MDRD) 65 L Glucose 93 Glycated Hemoglobin Estim Average Glucose Lactic Acid 0.7 Calcium 8.2 L 04/13/20 04/13/20 04:50 04:50 WBC RBC Hgb Hct MCV MCH MCHC RDW Plt Count MPV Neut # (Auto) Lymph # (Auto) Hitchcock # (Auto) Eos # (Auto) Baso # (Auto) Absolute Nucleated RBC Nucleated RBC % Sodium 142 Potassium 3.8 Chloride 110 Carbon Dioxide 24 Anion Gap 8.0 BUN 15 Creatinine 0.9 Estimated GFR (MDRD) 65 L Glucose 83 Glycated Hemoglobin 5.6 Estim Average Glucose 114 H Lactic Acid Calcium 8.5 - DIAGNOSTIC IMAGING Diagnostic Imaging Results: Final report reviewed - SEPSIS Current Stage of Sepsis: Sepsis Possible source of Sepsis: Unknown Sepsis Criteria: Recorded Heart Rate greater than 90 bpm, WBC count greater than 12,000 or less than 4000, Metabolic: lactate > 2 mmol/L - FOLLOW UP Follow Up: She was asked to follow-up with her primary care physician within 1 week and to be referred to gastroenterology. - TIME SPENT Time Spent in Discharge (Minutes): 32"
[2020-04-13] MEDS: ENOXAPARIN 40 MG/0.4 ML SYRINGE SUBQ SCH (08:05)
[2020-04-13] MEDS: SODIUM CHLORIDE FLUSH 0.9% 10 ML SYRINGE IVP SCH (08:05)
[2020-04-13] MEDS: SODIUM CHLORIDE 0.9% 1,000 ML IV SCH (08:06)
[2020-04-13 09:16] VITALS: BP 120/62
== END 2020-04-13 11:15 | disposition home or self-care (01) ==
LOC: ED 03:37 → MS2 06:24
PROVIDERS: ADMIT Specialist; ATTEND Internal Medicine
DX: R11.2 Nausea with vomiting, unspecified (principal); F12.10 Cannabis abuse, uncomplicated; R65.10 Systemic inflammatory response syndrome (SIRS) of non-infectious origin without acute organ dysfunction; N17.9 Acute kidney failure, unspecified; E87.6 Hypokalemia; D72.829 Elevated white blood cell count, unspecified; R74.0 Nonspecific elevation of levels of transaminase and lactic acid dehydrogenase [LDH]; F20.9 Schizophrenia, unspecified; F41.0 Panic disorder [episodic paroxysmal anxiety]; F17.210 Nicotine dependence, cigarettes, uncomplicated; Z87.19 Personal history of other diseases of the digestive system; Z79.899 Other long term (current) drug therapy
CPT/HCPCS: 36415; 74177; 80048; 80053; 80306; 80320; 81001; 81025; 82550; 82803; 83036; 83605; 83690; 83735; 85025; 85610; 85730; 87040; 93005; 96361; 96365; 96366; 96367; 96368; 96372; 96375; 96376; 99285; G0378; J1650; J2060; Q9967; 81003; 87086

== ENCOUNTER 2020-05-04 12:24 | Emergency (ER) | payer MEDICAID ==
[2020-05-04 12:32] VITALS: BP 120/84
[2020-05-04] MEDS ORDERED: HYDROcod/ACETAM 5/325 MG TABLET PO STA (12:36)
--- NOTE | 2020-05-04 12:37 | ED Physician Documentation ---
PD HPI UPPER EXT INJURY - Stated complaint Stated Complaint: LT SHOULDER PX - Chief complaint Chief Complaint: Ext Problem - History obtained from History obtained from: Patient - Additonal information Additional information: 10 years ago she dislocated her left shoulder. It sometimes bothers her. Without specific injury recently she has had severe pain of the left shoulder posteriorly today. It hurts to raise her shoulder. No other injuries. No fevers. 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 HEENT: None Psych: Schizophrenia, Panic attacks Musculoskeletal: Other Derm: None - Past Surgical History Past Surgical History: Yes General: Cholecystectomy - Present Medications Home Medications: Ambulatory Orders Medication Instructions Recorded Confirmed Hydrocodone/Acetaminophen 1 - 2 tab PO Q6H PRN #14 tablet 05/04/20 [Hydrocodone-Acetamin 5-325 mg] - Allergies Allergies/Adverse Reactions: Allergies Allergy/AdvReac Type Severity Reaction Status Date / Time cephalexin Allergy Hallucinati Verified 05/04/20 12:31 ons - Social History Does the pt smoke?: Yes Smoking Status: Current every day smoker Does the pt drink ETOH?: No Does the pt have substance abuse?: Yes - Immunizations Immunizations are current?: Yes - POLST Patient has POLST: No POLST Status: Full Code PD ED PE NORMAL - Vitals Vital signs reviewed: Yes - General General: Alert and oriented X 3, No acute distress - Extremities Extremities: Other (She is mildly tender over the posterior part of the glenohumeral joints. She can abduct to about almost 90 degrees, but then it becomes painful. She does better passively. She has pain with forced internal rotation but not external rotation. Normal radial pulses.) - Neuro Neuro: Alert and oriented X 3, Normal speech Results - Vitals Vitals: Vital Signs - 24 hr 05/04/20 12:30 Temperature 37.2 C Heart Rate 65 Respiratory 16 Rate Blood Pressure 120/84 H O2 Saturation 98 Oxygen O2 Source Room air - Rads (name of study) Three-view x-ray of the left shoulder Radiology: EMP read contemporaneously (Severe glenohumeral joint arthritis with ossified intra-articular loose bodies) PD MEDICAL DECISION MAKING - ED course ED course: 54-year-old woman presents with shoulder pain, she said it started today, but after review of her x-ray she also admits that she was seeing an orthopedist for her shoulder last year and had a steroid injection and was in physical therapy. She felt the steroid injection was helpful but the physical therapy was not. Advised to follow-up with a set orthopedist for consideration for repeat steroid injection. There is no clinical evidence of infection. Departure - Departure Disposition: Home, Self Care Clinical Impression: Osteoarthritis, shoulder Condition: Good Record reviewed to determine appropriate education?: Yes Instructions: Glenohumeral Osteoarthritis Prescriptions: Hydrocodone/Acetaminophen [Hydrocodone-Acetamin 5-325 mg] 1 - 2 tab PO Q6H PRN #14 tablet PRN Reason: Pain Comments: On your x-ray today you have severe arthritis in the left shoulder with intra- articular loose bodies. Follow-up with the orthopedic surgeon that you did last year for consideration for repeat steroid injection, at some point you may need a shoulder replacement. Do the exercises that the physical therapist showed you previously. Return if worse. Do not drink or drive while taking narcotic pain medication. Note that many narcotic pain relievers also contain Tylenol/acetaminophen. Please ensure that your total dose of acetaminophen from all sources does not exceed 3 g (3000 mg) per day. You may get constipated while on this medication. Take a stool softener such as Colace twice a day while you are on it. Also add an pcst-sut-koyxuyh laxative such as senna or MiraLAX on any day that you do not have a bowel movement. If you received a narcotic pain medication or sedative while in the emergency department, do not drive for the next 24 hours. Discharge Date/Time: 05/04/20 13:19
--- NOTE | 2020-05-04 13:02 | XRAY Report ---
PROCEDURE: Shoulder 3 View LT INDICATIONS: shoulder pain TECHNIQUE: 3 views of the shoulder were acquired. COMPARISON: None. FINDINGS: Bones: No fractures or dislocations. No suspicious bony lesions. Visualized ribs appear intact. Soft tissues: At least 3 large calcifications project over axillary pouch of the left glenohumeral mary int concerning for ossified intra-articular loose bodies. Ossifications measure approximately 2.6, 2. 5 and 1.4 cm in maximum diameter. Severe left uncovertebral joint osseous degenerative changes. IMPRESSION: 1. Severe left glenohumeral joint osteoarthritis. 2. Probable ossified intra-articular loose bodies. Reviewed by: Jessica Stanford MD, PhD on 05/04/2020 1:01 PM PDT Approved by: Jessica Stanford MD, PhD on 05/04/2020 1:01 PM PDT Station ID: [id number]
== END 2020-05-04 13:19 | disposition home or self-care (01) ==
LOC: ED 12:24
DX: M19.012 Primary osteoarthritis, left shoulder (principal); M24.012 Loose body in left shoulder; F17.200 Nicotine dependence, unspecified, uncomplicated
CPT/HCPCS: 73030; 99283; A9270

== ENCOUNTER 2020-07-09 13:34 | Outpatient (CLI) | payer MEDICAID | END 2020-07-09 13:35 | disposition home or self-care (01) | LOC: COV 13:34 | PROVIDERS: ATTEND Internal Medicine Gastroenterology | DX: Z01.818 Encounter for other preprocedural examination (principal); R11.2 Nausea with vomiting, unspecified; Z20.828 Contact with and (suspected) exposure to other viral communicable diseases ==

== ENCOUNTER 2020-08-04 22:50 | Emergency (ER) | payer MEDICAID ==
[2020-08-04 22:59] VITALS: BP 113/98
[2020-08-04] MEDS ORDERED: diphenhydrAMINE 25 MG CAPSULE PO STA (23:46)
--- NOTE | 2020-08-05 06:10 | ED Physician Documentation ---
PD HPI SKIN - Stated complaint Stated Complaint: REACTION FROM FLU SHOT - Chief complaint Chief Complaint: Wound - History obtained from History obtained from: Patient, Family () - Additional information Additional information: 55-year-old woman presents status post flu shot and shingles vaccine 1 week ago with right shoulder mild Erythema emerging yesterday at the site of her shingles vaccine. Patient denies swelling, pain, fever, or tense compartment. normal sensation and motor to the arm. 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 HEENT: None Psych: Schizophrenia, Panic attacks Musculoskeletal: Other Derm: None - Past Surgical History Past Surgical History: Yes General: Cholecystectomy - Allergies Allergies/Adverse Reactions: Allergies Allergy/AdvReac Type Severity Reaction Status Date / Time cephalexin Allergy Hallucinati Verified 05/04/20 12:31 ons - Social History Does the pt smoke?: Yes Smoking Status: Current every day smoker Does the pt drink ETOH?: No Does the pt have substance abuse?: Yes - Immunizations Immunizations are current?: Yes - POLST Patient has POLST: No POLST Status: Full Code PD ED PE NORMAL - Vitals Vital signs reviewed: Yes - General General: Alert and oriented X 3 - Derm Derm: Other (right shoulder with mild erythematous blanching rash without evidence of cellulitis.) - Extremities Extremities: Other (sensory and neurovascularly intact in all extremities.) Results - Vitals Vitals: Vital Signs - 24 hr 08/04/20 22:52 Temperature 37.1 C Heart Rate 77 Respiratory 18 Rate Blood Pressure 113/98 H O2 Saturation 97 Oxygen O2 Source Room air PD MEDICAL DECISION MAKING - ED course Complexity details: d/w patient, d/w family ED course: 55-year-old woman presents with mild allergic reaction status post shingles vaccine. She does not have any other System involvement besides skin. Advised her to take [id number] Benadryl. No evidence of cellulitis at this time. Extensive counseling and strict return precautions given. Follow-up with primary doctor. Departure - Departure Disposition: 01 Home, Self Care Clinical Impression: Allergic reaction Condition: Good Instructions: Post Injection Inflammation Comments: You were seen in the ED for mild redness, pain, and itchiness around your injection site after getting a vaccine. You can take [id number] Benadryl for your symptoms. If you start to have fevers or severe pain in the area or if the area becomes hard then please return to the ED. Also return to the ED for any worsening of symptoms Discharge Date/Time: 08/04/20 23:52
== END 2020-08-04 23:52 | disposition home or self-care (01) ==
LOC: ED 22:50
DX: T80.62XA Other serum reaction due to vaccination, initial encounter (principal); T50.Z95A Adverse effect of other vaccines and biological substances, initial encounter; Y84.8 Other medical procedures as the cause of abnormal reaction of the patient, or of later complication, without mention of misadventure at the time of the procedure; F17.200 Nicotine dependence, unspecified, uncomplicated
CPT/HCPCS: 99282; A9270

== ENCOUNTER 2021-01-20 21:45 | Emergency (ER) | payer MEDICAID ==
[2021-01-20 22:16] VITALS: BP 121/77
--- OUTSIDE RECORDS SUMMARY | 2021-01-20 22:29 | EXTERNAL MEDICAL SUMMARY RPT | Continuity of Care Document ---
:1965 Demographics Phone Unavailable Preferred Language Unknown Marital Status Unknown Jainism Affiliation Unknown Race Unknown Ethnic Group Unknown Author Organization [facility] Address [address] [id number] Phone Social History date description facility [id number]
[2021-01-20] MEDS ORDERED: KETOROLAC 60 MG/2 ML VIAL IM STA (22:55)
[2021-01-20] MEDS ORDERED: DEXAMETHASONE 10 MG/ML VIAL PO STA (22:55)
[2021-01-20] MEDS ORDERED: CHERRY SYRUP 10 ML UDC PO ONE (22:55)
--- NOTE | 2021-01-20 22:58 | ED Physician Documentation ---
History of Present Illness - Stated complaint Stated Complaint: R SHOULDER PX/NUMBNESS - Chief complaint Chief Complaint: Ext Problem - History obtained from History obtained from: Patient - History of Present Illness Timing: How many days ago (3) - Additonal information Additional information: 55-year-old female reports that she has had pain in her right upper extremity for months and over the past 3 days she has developed some numbness specifically over the forearm and the dorsal surface of the thumb and index finger. 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 Review of Systems Constitutional: denies: Fever Eyes: denies: Decreased vision Ears: denies: Ear pain Nose: denies: Congestion Throat: denies: Sore throat Cardiac: denies: Chest pain / pressure Respiratory: denies: Dyspnea, Cough GI: denies: Abdominal Pain, Nausea, Vomiting : denies: Dysuria, Frequency Skin: denies: Rash Musculoskeletal: reports: Neck pain, Extremity pain. denies: Back pain, Extremity swelling Neurologic: reports: Numbness. 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 HEENT: None Psych: Schizophrenia, Panic attacks Musculoskeletal: Other Derm: None - Past Surgical History Past Surgical History: Yes General: Cholecystectomy - Present Medications Home Medications: Ambulatory Orders Medication Instructions Recorded Confirmed Cyclobenzaprine [Flexeril] 10 mg PO TID PRN #20 tablet 01/20/21 HYDROcod/ACETAM 5/325 [[place] 5/325] 1 - 2 tablet PO Q6H PRN #14 tablet 01/20/21 - Allergies Allergies/Adverse Reactions: Allergies Allergy/AdvReac Type Severity Reaction Status Date / Time cephalexin Allergy Hallucinati Verified 05/04/20 12:31 ons - Social History Does the pt smoke?: Yes Smoking Status: Current every day smoker Does the pt drink ETOH?: No Does the pt have substance abuse?: Yes - Immunizations Immunizations are current?: Yes - POLST Patient has POLST: No POLST Status: Full Code PD ED PE NORMAL - Vitals Vital signs reviewed: Yes (Normal) - General General: Alert and oriented X 3, No acute distress, Well developed/nourished - HEENT HEENT: Atraumatic, PERRL, EOMI - Neck Neck: Supple, no meningeal sign, No bony TTP, Other (There is mild point tenderness along the paraspinous muscles of the cervical spine from the occiput to the insertion of the spinal sensory.) - Respiratory Respiratory: No respiratory distress - Derm Derm: Normal color, Warm and dry, No rash - Extremities Extremities: No deformity, No edema, Other (There is normal strength to flexion extension it application architect, spreading of the fingers and there is no evidence of muscle wasting.) - 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, No motor deficit, Normal speech, Other (Subjective numbness over the dorsal aspect of the forearm and dorsal aspect of the index and thumb.) Eye Opening: Spontaneous Motor: Obeys Commands Verbal: Oriented GCS Score: 15 - Psych Psych: Normal mood, Normal affect Results - Vitals Vitals: Vital Signs - 24 hr 01/20/21 22:12 Temperature 37.1 C Heart Rate 64 Respiratory 12 Rate Blood Pressure 121/77 O2 Saturation 96 Oxygen O2 Source Room air PD MEDICAL DECISION MAKING - ED course Complexity details: reviewed old records, considered differential, d/w patient ED course: 55-year-old female with a cervical radiculopathy is administered dexamethasone 10 mg orally and Toradol 60 mg IM[address] We will place her on a short course of hydrocodone and Flexeril. Departure - Departure Disposition: 01 Home, Self Care Clinical Impression: Cervical radiculopathy Condition: Stable Instructions: ED Cervical Radiculopathy Follow-Up: [facility] [Provider Group] Prescriptions: Cyclobenzaprine [Flexeril] 10 mg PO TID PRN #20 tablet PRN Reason: Spasms HYDROcod/ACETAM 5/325 [[place] 5/325] 1 - 2 tablet PO Q6H PRN #14 tablet PRN Reason: Pain
[2021-01-20] MEDS ORDERED: CYCLOBENZAPRINE 10 MG Prepack 2 PO PRN (23:03)
[2021-01-20] MEDS ORDERED: HYDROcod/ACET 5/325 Prepack 4 PO STA (23:03)
== END 2021-01-20 23:18 | disposition home or self-care (01) ==
LOC: ED 21:45
DX: M54.12 Radiculopathy, cervical region (principal); F17.200 Nicotine dependence, unspecified, uncomplicated
CPT/HCPCS: 96372; 99283; 99284; A9270

== ENCOUNTER 2021-01-29 17:28 | Outpatient (CLI) | payer MEDICAID ==
--- NOTE | 2021-01-30 09:32 | XRAY Report ---
PROCEDURE: Cervical Spine 2 View INDICATIONS: CERVICAL RADICULOPATHY TECHNIQUE: 3 view(s) of the cervical spine were acquired. COMPARISON: None. FINDINGS: Bones: No fractures or dislocations to the C7 level. There is grade 1 anterolisthesis of C2 on C3 a nd trace retrolisthesis of L5 on C6. The lateral masses of C1 appear intact on the odontoid view. No suspicious bony lesions. Degenerative disc disease is present, moderate at C5-C6 and C6-C7, mild at C4-C5. Bilateral facet arthropathy, most pronounced and moderate at C2-C3, C3-4-C5 and C5-C6 on the left. Soft tissues: No prevertebral soft tissue swelling. IMPRESSION: 1. Moderate degenerative disc and facet disease in cervical spine. Reviewed by: West Zhu MD on 01/30/2021 9:31 AM PDT Approved by: West Zhu MD on 01/30/2021 9:31 AM PDT Station ID: [id number]
== END 2021-01-29 23:59 | disposition home or self-care (01) ==
LOC: DI.N 17:28
PROVIDERS: ATTEND Physician Assistant Medical
DX: M43.12 Spondylolisthesis, cervical region (principal); M50.322 Other cervical disc degeneration at C5-C6 level; M47.812 Spondylosis without myelopathy or radiculopathy, cervical region

== ENCOUNTER 2021-03-16 13:42 | Outpatient (CLI) | payer MEDICAID ==
--- NOTE | 2021-03-16 17:13 | MRI Report ---
PROCEDURE: Cervical Spine W/O INDICATIONS: CERVICAL RADICULOPATHY TECHNIQUE: Noncontrast sagittal T1 spin echo and T2 fast spin echo, sagittal STIR, foraminal oblique sagittal T2 fast spin echo, and axial gradient echo and T2 fast spin echo through the cervical spine. COMPARISON: Correlation is made with cervical spine plain films, 01/29/2021. FINDINGS: Image quality: Motion artifact is noted. Alignment and Curvature: There is normal bony alignment. Bone Marrow: Marrow demonstrates normal overall signal. Spinal Cord: Visualized spinal cord has normal size and signal. No cerebellar tonsillar herniation. Paraspinous Soft Tissues: No paravertebral masses. Prevertebral soft tissues are normal in thicknes s. C2-C3: Normal in appearance. C3-C4: Normal in appearance. C4-C5: No significant abnormality is seen. C5-C6: Mild loss of disc height and disc signal are seen. Moderate disc osteophyte complex is seen , with a right lateral recess/right foraminal disc osteophyte protrusion. Moderate facet hypertrophy is seen. There is moderate to severe bilateral neuroforaminal narrowing seen. Moderate central ca nal narrowing is seen. Associated mass effect is seen upon the ventral spinal cord. C6-C7: Mild loss of disc height and disc signal are seen. Moderate disc osteophyte complex is s een. Moderate facet hypertrophy is seen. There is moderate to severe bilateral neuroforaminal narr owing seen, right worse than left. Mild central canal narrowing is seen. C7-T1: Normal in appearance. IMPRESSION: Focal C5-C6 and C6-C7 degenerative change. Reviewed by: Nilay Coppola MD on 03/16/2021 4:12 PM JACKIE Approved by: Nilay Coppola MD on 03/16/2021 4:12 PM JACKIE Station ID: [id number]
== END 2021-03-16 13:43 | disposition home or self-care (01) ==
LOC: DI 13:42
PROVIDERS: ATTEND Physician Assistant Medical
DX: M50.321 Other cervical disc degeneration at C4-C5 level (principal); M47.812 Spondylosis without myelopathy or radiculopathy, cervical region

== ENCOUNTER 2021-07-06 19:11 | Emergency (ER) | payer MEDICAID ==
[2021-07-06] MEDS ORDERED: predniSONE 20 MG TABLET PO STA (20:16)
[2021-07-06] MEDS ORDERED: KETOROLAC 60 MG/2 ML VIAL IM STA (20:16)
--- NOTE | 2021-07-06 20:18 | ED Physician Documentation ---
History of Present Illness - Stated complaint Stated Complaint: SHOULDER PX - Chief complaint Chief Complaint: General - History obtained from History obtained from: Patient - Additonal information Additional information: Patient comes emergency department chief complaint of left shoulder pain. She states is been going on for 10 years and she is not really sure whether it is actually worse tonight. 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 She states she has a history of dislocations in the past and that she has had a bump on her shoulder that has never gone away since. She states that what is where it hurts. She has not felt any popping or clicking. No recent distinct injury. Patient's been taking ibuprofen. Review of Systems Ten Systems: 10 systems reviewed and negative Constitutional: reports: Reviewed and negative Eyes: reports: Reviewed and negative Ears: reports: Reviewed and negative Nose: reports: Reviewed and negative Throat: reports: Reviewed and negative Cardiac: reports: Reviewed and negative Respiratory: reports: Reviewed and negative GI: reports: Reviewed and negative : reports: Reviewed and negative Skin: reports: Reviewed and negative Musculoskeletal: reports: Joint pain Neurologic: reports: Reviewed and negative Psychiatric: reports: Reviewed and negative Endocrine: reports: Reviewed and negative Immunocompromised: reports: Reviewed and negative PD PAST MEDICAL HISTORY - Past Medical History Cardiovascular: None Respiratory: None Neuro: None Endocrine/Autoimmune: None GI: C.difficile, Pancreatitis, Cholelithiasis 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 HEENT: None Psych: Schizophrenia, Panic attacks Musculoskeletal: Other Derm: None - Past Surgical History Past Surgical History: Yes General: Cholecystectomy - Present Medications Home Medications: Ambulatory Orders Medication Instructions Recorded Confirmed Cyclobenzaprine [Flexeril] 10 mg PO TID PRN #20 tablet 01/20/21 HYDROcod/ACETAM 5/325 [[place] 5/325] 1 - 2 tablet PO Q6H PRN #14 tablet 01/20/21 predniSONE [Deltasone] 60 mg PO DAILY 5 Days #15 tablet 07/06/21 - Allergies Allergies/Adverse Reactions: Allergies Allergy/AdvReac Type Severity Reaction Status Date / Time cephalexin Allergy Hallucinati Verified 07/06/21 19:21 ons - Social History Does the pt smoke?: Yes Smoking Status: Current every day smoker Does the pt drink ETOH?: No Does the pt have substance abuse?: Yes - Immunizations Immunizations are current?: Yes - POLST Patient has POLST: No POLST Status: Full Code PD ED PE NORMAL - Vitals Vital signs reviewed: Yes - General General: Alert and oriented X 3, No acute distress, Well developed/nourished - HEENT HEENT: Atraumatic, PERRL, EOMI, Moist mucous membranes - Neck Neck: Supple, no meningeal sign - Cardiac Cardiac: Strong equal pulses - Respiratory Respiratory: No respiratory distress - Derm Derm: Normal color, Warm and dry, No rash - Extremities Extremities: No deformity, Normal ROM s pain (The patient gestures widely with both arms while explaining how she is taking care of the 6-year-old. She Does not appear to have pain with range of motion.), No edema, No calf tenderness / cord - Neuro Neuro: Alert and oriented X 3, furnace converter 2-12 intact, No motor deficit, No sensory deficit, Normal speech - Psych Psych: Normal mood, Normal affect Results - Vitals Vitals: Vital Signs - 24 hr 07/06/21 19:21 Temperature 36.5 C Heart Rate 62 Respiratory 16 Rate Blood Pressure 114/77 O2 Saturation 98 Oxygen O2 Source Room air PD MEDICAL DECISION MAKING - ED course Complexity details: considered differential, d/w patient ED course: The patient did not have any acute injury and actually had intact range of motion of her left shoulder, but despite the complaint of pain. She was given IM Toradol and oral dose of prednisone here in the emergency department. We have discussed home management and symptoms and the usual indications for return. Departure - Departure Disposition: 01 Home, Self Care Clinical Impression: Shoulder pain, left Qualifiers: Chronicity: acute Qualified Code(s): M25.512 - Pain in left shoulder Condition: Stable Instructions: ED Shoulder Pain [facility] Prescriptions: predniSONE [Deltasone] 60 mg PO DAILY 5 Days #15 tablet
[2021-07-06 20:41] VITALS: BP 104/71
== END 2021-07-06 20:41 | disposition home or self-care (01) ==
LOC: ED 19:11
DX: M25.512 Pain in left shoulder (principal); F17.200 Nicotine dependence, unspecified, uncomplicated
CPT/HCPCS: 96372; 99283; 99284; J7512

== ENCOUNTER 2022-01-25 09:08 | Outpatient (CLI) | payer MEDICAID ==
[2022-01-25 12:39] LABS: BASOPHILS # (AUTO) 0.1 10^3/uL (0.0-0.1); BASOPHILS % (AUTO) 1.5 %; EOSINOPHILS # (AUTO) 0.6 10^3/uL (0.0-0.7); EOSINOPHILS % (AUTO) 6.3 %; HCT - HEMATOCRIT 44.3 % (37.0-47.0); LYMPHOCYTES # (AUTO) 3.5 10^3/uL (1.5-3.5); LYMPHOCYTES % (AUTO) 37.8 %; MEAN CORPUSCULAR HEMOGLOBIN 33.4 pg (27.0-31.0); MEAN CORPUSCULAR HGB CONC 33.9 g/dL (32.0-36.0); MEAN CORPUSCULAR VOLUME 98.7 fL (81.0-99.0); MEAN PLATELET VOLUME 12.9 fL (7.9-10.8); MONOCYTES # (AUTO) 0.7 10^3/uL (0.0-1.0); MONOCYTES % (AUTO) 7.3 %; NEUTROPHILS # (AUTO) 4.3 10^3/uL (1.5-6.6); NEUTROPHILS % (AUTO) 46.8 %; PLT - PLATELET COUNT 314 10^3/uL (130-450); RED BLOOD COUNT 4.49 10^6/uL (4.20-5.40); RED CELL DISTRIBUTION WIDTH 13.6 % (12.0-15.0); WHITE BLOOD COUNT 9.2 x10^3/uL (4.8-10.8)
[2022-01-25 13:06] LABS: MICROALBUM/CREATININE RATIO,UR 8.3 ug/mg (<30.0); MICROALBUMIN,URINE 0.3 mg/dL (0-300.0)
[2022-01-25 13:08] LABS: ESTIMATED AVERAGE GLUCOSE 114 mg/dL (70-100); HEMOGLOBIN A1c% 5.6 % (4.27-6.07)
[2022-01-25 13:21] LABS: ALBUMIN 4.2 g/dL (3.2-5.5); ALBUMIN/GLOBULIN RATIO 1.4 (1.0-2.2); ALKALINE PHOSPHATASE 76 IU/L (42-121); ALT ALANINE AMINOTRANSFERASE 23 IU/L (10-60); AST ASPARTATE AMINOTRANSFERASE 22 IU/L (10-42); BILIRUBIN,TOTAL 0.6 mg/dL (0.2-1.0); BUN - BLOOD UREA NITROGEN 15 mg/dL (6-20); CALCIUM 9.3 mg/dL (8.5-10.3); CARBON DIOXIDE - CO2 26 mmol/L (21-32); CHLORIDE 105 mmol/L (101-111); CHOL/HDL RATIO 7.3 (<4.4); CHOLESTEROL 337 mg/dL; CREATININE 0.8 mg/dL (0.4-1.0); GFR - MDRD 74 (>89); GLUCOSE 108 mg/dL (70-100); HDL CHOLESTEROL 46 mg/dL; LDL CHOLESTEROL,CALCULATED 246 mg/dL; LDL/HDL RATIO 5.3 (<4.4); SODIUM 138 mmol/L (135-145); TOTAL PROTEIN 7.3 g/dL (6.7-8.2); TRIGLYCERIDES 223 mg/dL; VLDL CHOLESTEROL 45 mg/dL
[2022-01-25 13:30] LABS: THYROID STIMULATING HORMONE 4.06 uIU/mL (0.34-5.60)
== END 2022-01-25 09:09 | disposition home or self-care (01) ==
LOC: LAB.N 09:08
PROVIDERS: ATTEND Nurse Practitioner
DX: E78.01 Familial hypercholesterolemia (principal); R53.83 Other fatigue; R73.9 Hyperglycemia, unspecified
CPT/HCPCS: 36415; 80053; 80061; 82043; 82570; 83036; 83721; 84443; 85025

== ENCOUNTER 2022-02-01 11:30 | Outpatient (CLI) | payer MEDICAID ==
--- NOTE | 2022-02-01 16:46 | XRAY Report ---
PROCEDURE: Shoulder 2 View LT INDICATIONS: LEFT SHOULDER PAIN TECHNIQUE: 2 views of the shoulder were acquired. COMPARISON: None. FINDINGS: No fracture or dislocation. Moderate osteoarthritic change in the left glenohumeral joint characteriz ed by joint space narrowing with marginal osteophytosis. There is also some glenoid and humeral head subchondral sclerosis. No frontal view was obtained to evaluate for acromioclavicular degenerative ch valente. IMPRESSION: Moderate glenohumeral osteoarthritis. Reviewed by: Cirilo Parrish MD on 02/01/2022 4:45 PM PDT Approved by: Cirilo Parrish MD on 02/01/2022 4:45 PM PDT Station ID: [id number]
== END 2022-02-01 23:59 | disposition home or self-care (01) ==
LOC: DI.WOS 11:30
PROVIDERS: ATTEND Physician Assistant
DX: M19.012 Primary osteoarthritis, left shoulder (principal)

== ENCOUNTER 2022-02-11 11:55 | Outpatient (CLI) | payer MEDICAID ==
[2022-02-11] MEDS ORDERED: LIDOCAINE-MPF 1% 10 ML AMP ONE (12:23)
[2022-02-11] MEDS ORDERED: ROPIVACAINE 0.5% PF 20 ML AMPULE ONE (12:24)
[2022-02-11] MEDS ORDERED: TRIAMCINOLONE 40 MG/ML VIAL ONE (12:25)
[2022-02-11] MEDS ORDERED: IOTHALAMATE MEGLUMINE 50 ML VIAL ONE (12:26)
[2022-02-11] MEDS ORDERED: IOTHALAMATE MEGLUMINE 50 ML VIAL IVP ONE (14:10)
[2022-02-11] MEDS ORDERED: LIDOCAINE-MPF 1% 10 ML AMP IM ONE (14:12)
[2022-02-11] MEDS ORDERED: TRIAMCINOLONE 40 MG/ML VIAL IM ONE (14:13)
[2022-02-11] MEDS ORDERED: ROPIVACAINE 0.5% PF 20 ML AMPULE EP ONE (14:26)
--- NOTE | 2022-02-11 14:35 | XRAY Report ---
PROCEDURE: Inj/Aspiration Major Joint INDICATIONS: LEFT SHOULDER DJD CONTRAST: CONTRAST: CONRAY FLUORO TIME: FLUORO TIME: 0.5 MIN and NUMBER IMAGES: 2 TECHNIQUE: The indications, alternatives, benefits, risks, and complications of the procedure were explained to the patient. Written informed consent was obtained and placed in the chart. The patient was placed in an appropriate position on the fluoroscopy table, and a site was chosen for percutaneous access un dave fluoroscopic guidance. Local anesthetic was administered using a 1% lidocaine solution. A hypod ermic or spinal needle was then used to access the symptomatic joint. Intra-articular location of th e needle tip was confirmed by injecting a small amount of contrast, followed by steroid administratio n. The needle was then withdrawn, and a bandage applied to the puncture site. FINDINGS: Joint injected: Left shoulder Medications injected: 5 mL of 40 mg/mL Kenalog and 0.5% Ropivacaine mixture. Complications: None. IMPRESSION: Successful fluoroscopically guided administration of steroid and anaesthetic solution into the left s houlder joint. Reviewed by: Nicky Dunham MD on 02/11/2022 2:33 PM PDT Approved by: Nicky Dunham MD on 02/11/2022 2:33 PM PDT Station ID: [id number]
== END 2022-02-11 11:56 | disposition home or self-care (01) ==
LOC: DI 11:55
PROVIDERS: ATTEND Physician Assistant
DX: M19.012 Primary osteoarthritis, left shoulder (principal)
CPT/HCPCS: 20610

== ENCOUNTER 2022-12-05 12:59 | Outpatient (CLI) | payer MEDICAID ==
--- NOTE | 2022-12-06 10:03 | Mammography Report ---
BILATERAL DIGITAL SCREENING MAMMOGRAM 3D/2D: 12/05/2022 CLINICAL: Family history of breast cancer. Baseline exam. Routine screening. No prior exams were available for comparison. There are scattered areas of fibroglandular density in both breasts (category b / 25%-50% glandular t issue). No significant masses, calcifications, or other findings are seen in either breast. IMPRESSION: NEGATIVE There is no mammographic evidence of malignancy. A 1 year screening mammogram is recommended. Based on the Tyrer Cuzick model (a risk assessment model) the patients lifetime risk is 13.0% and he r 10 year risk is 4.8%. According to the ACR, ACS, and NCCN guidelines, an annual breast MRI exam lanie ng with mammogram is recommended if the patients lifetime risk is 20% or greater. This exam was interpreted at Station ID: [id number]. NOTE: For mammograms, a report in lay terms will be sent to the patient. Approximately 15% of breast malignancies will not be visualized mammographically. In the management of a palpable breast mass, a negative mammogram must not discourage biopsy of a clinically suspicious lesion. Electronically Signed By: Toy [email or web address]/[email or web address]:12/05/2022 16:50:31 letter sent: No_Letter ACR BI-RADS Category 1: Negative 3341F PARENCHYMAL PATTERN: (A) - The breast(s) demonstrate(s) scattered fibroglandular densities. BI-RADS CATEGORY: (1) - 1 Mammogram [id number] 1 year screening LATERALITY: (B)
== END 2022-12-05 13:00 | disposition home or self-care (01) ==
LOC: DI.N 12:59
PROVIDERS: ATTEND Nurse Practitioner
DX: Z12.31 Encounter for screening mammogram for malignant neoplasm of breast (principal); Z80.3 Family history of malignant neoplasm of breast

== ENCOUNTER 2022-12-30 17:30 | Outpatient (CLI) | payer MEDICAID | END 2022-12-30 17:45 | disposition home or self-care (01) | LOC: LAB.N 17:30 | PROVIDERS: ATTEND Nurse Practitioner | DX: R30.0 Dysuria (principal) | CPT/HCPCS: 87086 ==

== ENCOUNTER 2023-01-30 12:31 | Emergency (ER) | payer MEDICAID ==
--- NOTE | 2023-01-30 12:54 | ED Physician Documentation ---
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 HEENT: None Psych: Schizophrenia, Panic attacks Musculoskeletal: Other Derm: None - Past Surgical History Past Surgical History: Yes General: Cholecystectomy - Present Medications Home Medications: Ambulatory Orders Medication Instructions Recorded Confirmed Cyclobenzaprine [Flexeril] 10 mg PO TID PRN #20 tablet 01/20/21 HYDROcod/ACETAM 5/325 [[place] 5/325] 1 - 2 tablet PO Q6H PRN #14 tablet 01/20/21 predniSONE [Deltasone] 60 mg PO DAILY 5 Days #15 tablet 07/06/21 - Allergies Allergies/Adverse Reactions: Allergies Allergy/AdvReac Type Severity Reaction Status Date / Time cephalexin Allergy Hallucinati Verified 01/30/23 12:47 ons - Social History Does the pt smoke?: Yes Smoking Status: Current every day smoker Does the pt drink ETOH?: No Does the pt have substance abuse?: Yes - Immunizations Immunizations are current?: Yes - POLST Patient has POLST: No POLST Status: Full Code PD ED PE NORMAL - Vitals Vital signs reviewed: Yes - General General: Alert and oriented X 3, No acute distress - Female Female : Other (Done with Silvina LAYNE present and chaperoning, she does have mild bladder prolapse. Cervix appears normal. Nontender.) - Back Back: No CVA TTP, No spinal TTP - Extremities Extremities: No deformity Results - Vitals Vitals: Vital Signs - 24 hr 01/30/23 01/30/23 12:41 14:14 Temperature 36.6 C 36.6 C Heart Rate 94 89 Respiratory 16 16 Rate Blood Pressure 123/93 H 125/89 H O2 Saturation 97 98 Oxygen O2 Source Room air - Labs Labs: Laboratory Tests 01/30/23 13:12 Urine Color YELLOW Urine Clarity CLEAR Urine pH 6.0 Ur Specific [place] 1.025 Urine Protein NEGATIVE Urine Glucose (UA) NEGATIVE Urine Ketones NEGATIVE Urine Occult Blood MODERATE H Urine Nitrite NEGATIVE Urine Bilirubin NEGATIVE Urine Urobilinogen 0.2 (NORMAL) Ur Leukocyte Esterase NEGATIVE Urine RBC 6-10 H Urine WBC 0-3 Ur Squamous Epith Cells MANY Squamous H Urine Bacteria Few Ur Microscopic Review INDICATED Urine Culture Comments NOT INDICATED PD Medical Decision Making - ED course ED course: 57-year-old woman with dysuria and kind of vaginal pain with a bladder prolapse. We screened her for UTI which was negative. We will refer her to gynecology for definitive treatment of her bladder prolapse. Departure - Departure Disposition: 01 Home, Self Care Clinical Impression: Bladder prolapse, female, acquired Condition: Good Record reviewed to determine appropriate education?: Yes Instructions: Prolapse Surg Pelvic Organ, Cystocele Follow-Up: [facility] [Provider Group] Comments: You were seen today for bladder prolapse. There is no evidence of urinary tract infection/bladder infection. You need to follow-up with the women's care physicians for further evaluation and treatment and definitive treatment of your bladder prolapse. Return if worse. Call the office listed on this form today for next available appointment. You may need a referral from your primary care nurse practitioner, I should call her as well. Discharge Date/Time: 01/30/23 14:14
[2023-01-30 13:49] LABS: BILIRUBIN,URINE NEGATIVE (NEGATIVE); GLUCOSE, URINE (UA) NEGATIVE (NEGATIVE); KETONES,URINE (UA) NEGATIVE (NEGATIVE); LEUKOCYTE ESTERASE, URINE NEGATIVE (NEGATIVE); NITRITE,URINE NEGATIVE (NEGATIVE); OCCULT BLOOD,URINE MODERATE (NEGATIVE); PROTEIN,URINE NEGATIVE (NEGATIVE); UROBILINOGEN,URINE 0.2 (NORMAL) E.U./dL (NORMAL)
[2023-01-30 13:56] LABS: CLARITY,URINE CLEAR (CLEAR)
[2023-01-30 13:57] LABS: BACTERIA,URINE Few /HPF (None Seen); SQUAMOUS EPITHELIAL CELL,UR MANY Squamous (<= Few); WBC,URINE 0-3 /HPF (0-5)
[2023-01-30 14:15] VITALS: BP 125/89
== END 2023-01-30 14:14 | disposition home or self-care (01) ==
LOC: ED 12:31
DX: N81.10 Cystocele, unspecified (principal); F17.200 Nicotine dependence, unspecified, uncomplicated
CPT/HCPCS: 81001; 81003; 87086; 99283

== ENCOUNTER 2023-09-15 11:56 | Outpatient (CLI) | payer MEDICAID ==
--- NOTE | 2023-09-15 14:24 | XRAY Report ---
PROCEDURE: Chest 2 View X-Ray INDICATIONS: LLL PNEUMONIA TECHNIQUE: 2 views of the chest were acquired. COMPARISON: Chest radiograph 10/02/2019 FINDINGS: Surgical changes and devices: None. Lungs and pleura: Diffuse bilateral interstitial prominence. No focal consolidation. No pleural effu ysabel or pneumothorax. Mediastinum: Mediastinal contours appear normal. Heart size is normal. Bones and chest wall: No suspicious bony lesions. Overlying soft tissues appear unremarkable. IMPRESSION: Mild bilateral interstitial prominence may be chronic versus secondary to a viral or atypical pneumon ia or less likely mild edema. No focal consolidation is seen. Reviewed by: Richard Alvarez MD on 09/15/2023 2:23 PM PST Approved by: Richard Alvarez MD on 09/15/2023 2:23 PM PST Station ID: [id number]
== END 2023-09-15 11:57 | disposition home or self-care (01) ==
LOC: DI 11:56
PROVIDERS: ATTEND Nurse Practitioner
DX: J18.9 Pneumonia, unspecified organism (principal)

== ENCOUNTER 2023-10-17 13:11 | Outpatient (CLI) | payer MEDICAID ==
[2023-10-17 18:42] LABS: BASOPHILS # (AUTO) 0.1 10^3/uL (0.0-0.1); BASOPHILS % (AUTO) 1.2 %; EOSINOPHILS # (AUTO) 0.1 10^3/uL (0.0-0.7); EOSINOPHILS % (AUTO) 0.7 %; HCT - HEMATOCRIT 46.1 % (37.0-47.0); HGB - HEMOGLOBIN 14.7 g/dL (12.0-16.0); LYMPHOCYTES # (AUTO) 1.9 10^3/uL (1.5-3.5); LYMPHOCYTES % (AUTO) 22.8 %; MEAN CORPUSCULAR HEMOGLOBIN 31.7 pg (27.0-31.0); MEAN CORPUSCULAR HGB CONC 31.9 g/dL (32.0-36.0); MEAN CORPUSCULAR VOLUME 99.6 fL (81.0-99.0); MEAN PLATELET VOLUME 12.3 fL (7.9-10.8); MONOCYTES # (AUTO) 0.6 10^3/uL (0.0-1.0); MONOCYTES % (AUTO) 7.4 %; NEUTROPHILS # (AUTO) 5.7 10^3/uL (1.5-6.6); NEUTROPHILS % (AUTO) 67.5 %; PLT - PLATELET COUNT 338 10^3/uL (130-450); RED BLOOD COUNT 4.63 10^6/uL (4.20-5.40); RED CELL DISTRIBUTION WIDTH 13.1 % (12.0-15.0); WHITE BLOOD COUNT 8.4 x10^3/uL (4.8-10.8)
[2023-10-17 19:41] LABS: ALBUMIN 4.8 g/dL (3.2-5.5); ALBUMIN/GLOBULIN RATIO 1.7 (1.0-2.2); ALKALINE PHOSPHATASE 81 IU/L (42-121); ALT ALANINE AMINOTRANSFERASE 28 IU/L (10-60); AST ASPARTATE AMINOTRANSFERASE 22 IU/L (10-42); BILIRUBIN,TOTAL 0.4 mg/dL (0.2-1.0); BUN - BLOOD UREA NITROGEN 13 mg/dL (6-20); CALCIUM 10.1 mg/dL (8.5-10.3); CARBON DIOXIDE - CO2 29 mmol/L (21-32); CHLORIDE 102 mmol/L (101-111); CHOL/HDL RATIO 3.5 (<4.4); CHOLESTEROL 183 mg/dL; GFR - MDRD 57 (>89); GLUCOSE 117 mg/dL (74-104); HDL CHOLESTEROL 52 mg/dL; LDL CHOLESTEROL,CALCULATED 92 mg/dL; LDL/HDL RATIO 1.8 (<4.4); POTASSIUM 4.1 mmol/L (3.5-4.5); SODIUM 140 mmol/L (135-145); TOTAL PROTEIN 7.7 g/dL (6.4-8.9); TRIGLYCERIDES 195 mg/dL (48-352); VLDL CHOLESTEROL 39 mg/dL
[2023-10-17 20:08] LABS: THYROID STIMULATING HORMONE 3.99 uIU/mL (0.34-5.60)
[2023-10-17 22:14] LABS: ESTIMATED AVERAGE GLUCOSE 120 mg/dL (70-100); HEMOGLOBIN A1c% 5.8 % (4.27-6.07)
== END 2023-10-17 13:12 | disposition home or self-care (01) ==
LOC: LAB.N 13:11
PROVIDERS: ATTEND Nurse Practitioner
DX: E78.01 Familial hypercholesterolemia (principal); R53.83 Other fatigue; R73.9 Hyperglycemia, unspecified; F41.8 Other specified anxiety disorders; F41.9 Anxiety disorder, unspecified; F32.A Depression, unspecified
CPT/HCPCS: 36415; 80053; 80061; 83036; 83721; 84443; 85025